=== PATIENT | male | born 1955 | race Caucasian/White ===

== ENCOUNTER 2017-01-24 13:26 | Emergency (ER) | payer MEDICAID, MEDICARE ==
[~2017-01-24] VITALS: Ht 175.3 cm; Wt 90.7 kg
[~2017-01-24 13:26] MED LIST: ACHD5005 PO; ALBU17AE23; ALBU17AE23 IH; ALBU8.5H2 IH; ALBU8.5H4 IH; AMLO10TA82; AMLO10TA82 PO; ATOR20TA66 PO; AZIT-21 PO; BUTA-167; BUTA1TAB55; CETI10CA PO; DOXY100C2 PO; DOXY50CA2 PO; ERYT30GE4 TP; FURO20TA4 PO; HCA25SU PR; HYDR-34 PO; HYDR-3720 PO; HYDR1CAP2 PO; LORA10TA7 PO; MELO-170 PO; MELO15TA39 PO; NAPR-243; NAPR-243 PO; NAPROXEN; OMEP-10 PO; OMEP20CA6; PRCD5U PO; PRD50T PO; RT-ALBUINH IH; SERT100T PO; SIMV20TA3 PO; SIMV40TA2; SIMV40TA2 PO; SIMV40TA4; SRTR100T; TETR250C3; TRAZ50TA67; TRAZ50TA67 PO; TRZ50T; ZOLP10TA5 PO; [UNRECOGNIZED DRUG - CODE] PO; [UNRECOGNIZED DRUG - OTHER]
[2017-01-24] MEDS ORDERED: TRAM-42 PO (14:27)
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
[2017-01-24 14:40] VITALS: BP 152/80
--- NOTE | 2017-01-24 15:16 | Diagnostic Imaging Report ---
INDICATION: Shoulder popping for months. Three views. FINDINGS: Humeral head is in normal articulation with the glenoid fossa. Articulating surfaces are smooth. Joint space well preserved. The AC joint is in good alignment with moderate degenerative change. There is some osteophyte formation along the undersurface. Y view the scapula shows no fractures. No soft tissue calcifications are demonstrated. IMPRESSION: Degenerative osteoarthritic changes. Dictated by: Dictated on workstation # [id number]
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
== END 2017-01-24 14:40 | disposition home or self-care (01) ==
LOC: EDUNIT# 13:26 → ER 13:30
DX: S46.001A Unspecified injury of muscle(s) and tendon(s) of the rotator cuff of right shoulder, initial encounter (principal); M19.011 Primary osteoarthritis, right shoulder; I10 Essential (primary) hypertension; Z79.899 Other long term (current) drug therapy; X58.XXXA Exposure to other specified factors, initial encounter; Y99.8 Other external cause status
CPT/HCPCS: 73030; 99283

== ENCOUNTER → 2017-02-13 | Outpatient (CLI) | payer MEDICARE ==
[~2017-02-13] MED LIST changes: +TRAM-42 PO
--- NOTE | 2017-02-13 17:48 | Diagnostic Imaging Report ---
PROCEDURE: MRI right joint upper extremity without contrast. TECHNIQUE: Multiplanar, multisequence non contrast-enhanced MRI of the right upper extremity was accomplished. INDICATION: No known injury, right shoulder pain for one month. FINDINGS: There are degenerative changes at the AC joint with hypertrophic spurring, but no significant impingement at the level of the supraspinatus tendon is seen. There is tendinosis of the supraspinatus tendon, but no tear is seen. No labral tear is evident. There is no muscle mass or edema. IMPRESSION: There are degenerative changes at the AC joint. There is tendinosis of the supraspinatus tendon. No tear is seen. Dictated by: Dictated on workstation # [id number]
== END ==
LOC: RAD 16:35
PROVIDERS: ATTEND Nurse Practitioner
DX: M75.121 Complete rotator cuff tear or rupture of right shoulder, not specified as traumatic (principal)
CPT/HCPCS: 73221

== ENCOUNTER 2017-03-28 14:30 | Outpatient (RCR) | payer MEDICARE | END 2017-03-28 14:56 | disposition home or self-care (01) | PROVIDERS: ATTEND Nurse Practitioner | DX: S43.431A Superior glenoid labrum lesion of right shoulder, initial encounter (principal); X58.XXXA Exposure to other specified factors, initial encounter; Y99.8 Other external cause status ==

== ENCOUNTER 2017-04-13 10:47 | Emergency (ER) | payer MEDICARE ==
[~2017-04-13] VITALS: Ht 180.3 cm; Wt 104.3 kg
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
--- NOTE | 2017-04-13 11:39 | Diagnostic Imaging Report ---
INDICATION: Wrist pain x3 days. No known trauma. TECHNIQUE: Three views of the right wrist. CORRELATION STUDY: None FINDINGS: There is narrowing of the radiocarpal row with mild sclerosis compatible with degenerative changes. Also narrowing and degenerative change about the mid radioscaphoid row. No acute bony abnormality present. Carpometacarpal articulations appearing unremarkable. Cystic changes about the distal scaphoid. IMPRESSION: 1. Negative for acute bony abnormality of the right wrist. Mild to moderate multifocal degenerative changes present. Dictated by: Dictated on workstation # [id number]
[2017-04-13] MEDS ORDERED: NAPR500T PO (11:51)
[2017-04-13 12:01] VITALS: BP 168/91
== END 2017-04-13 12:01 | disposition home or self-care (01) ==
LOC: EDUNIT# 10:47 → ER 10:48
DX: M25.531 Pain in right wrist (principal); I10 Essential (primary) hypertension; M19.90 Unspecified osteoarthritis, unspecified site; X50.0XXA Overexertion from strenuous movement or load, initial encounter; Y93.H2 Activity, gardening and landscaping
CPT/HCPCS: 73110; 99282

== ENCOUNTER 2017-07-30 10:39 | Emergency (ER) | payer MEDICARE, MEDICAID ==
[~2017-07-30] VITALS: Ht 177.8 cm; Wt 108.9 kg
[~2017-07-30 10:39] MED LIST changes: +NAPR500T PO
[2017-07-30 11:03] LABS: BILIRUBIN,URINE NEGATIVE (NEGATIVE); KETONES,URINE NEGATIVE (NEGATIVE); LEUKOCYTE ESTERASE ,URINE 1+ (NEGATIVE); NITRITE,URINE NEGATIVE (NEGATIVE); PH,URINE 7 (5-9); PROTEIN,URINE NEGATIVE (NEGATIVE); UROBILINOGEN,URINE NORMAL (NORMAL)
[2017-07-30 11:11] LABS: SQUAMOUS EPITHELIAL CELL,UR RARE /HPF
[2017-07-30 11:39] LABS: BASOPHILS % (AUTO) 0 % (0-10); EOSINOPHILS % (AUTO) 0 % (0-10); LYMPHOCYTES # (AUTO) 1.2 X 10^3 (1.0-4.0); LYMPHOCYTES % (AUTO) 12 % (12-44); MEAN CORPUSCULAR HEMOGLOBIN 31 PG (25-34); MEAN CORPUSCULAR HGB CONC 34 G/DL (32-36); MEAN CORPUSCULAR VOLUME 91 FL (80-99); MEAN PLATELET VOLUME 9.1 FL (7.4-10.4); MONOCYTES # (AUTO) 1.1 X 10^3 (0.0-1.0); MONOCYTES % (AUTO) 12 % (0-12); NEUTROPHILS # (AUTO) 7.4 X 10^3 (1.8-7.8); NEUTROPHILS % (AUTO) 76 % (42-75); PLATELET COUNT 284 10^3/uL (130-400); RED BLOOD COUNT 4.95 10^6/uL (4.35-5.85); RED CELL DISTRIBUTION WIDTH 11.9 % (10.0-14.5); WHITE BLOOD COUNT 9.7 10^3/uL (4.3-11.0)
--- NOTE | 2017-07-30 11:47 | ED Back Pain ---
General Chief Complaint: Back Problems Stated Complaint: RIGHT SIDE PAIN Nursing Triage Note: RIGHT SIDED FLANK PAIN X2 DAYS. Nursing Sepsis Screen: No Definite Risk Source of Information: Patient Exam Limitations: No Limitations History of Present Illness Time Seen by Provider: 11:05 Initial Comments 61-year-old male patient presents to the emergency department complains of right sided flank/low back pain for 2 days. Reports pain radiates into the right shoulder blade and rt chest. Pain worse with deep breaths, movement, palpation, and coughing. Patient does have a h/o COPD and emphysema. Denies worsened pain with eating. Patient denies radiation into the LE's. Denies fever, chills, n/v/d. Denies h/o heart disease. Location: Other (rt flank) Timing/Duration: 1-2 Days, Getting Worse Pain/Injury Location: Other (rt flank) Radiation: Other (rt back and rt shoulder blade) Method of Injury: Other (denies known injury) Modifying Factors: Worse With Movement, Worse With Other (worse with a deep breath, coughing, and palpation.) Associated Symptoms: muscle spasms, No fever, No weakness, No numbness in legs/ feet, No tingling in legs/feet, No sensory/motor loss, lower back pain, No loss of bladder control, No loss of bowel control Allergies and Home Medications Allergies Coded Allergies: No Known Drug Allergies (Unverified , 08/25/09) Home Medications Albuterol Sulfate 6.7 Gm Hfa.aer.ad, 6.7 GM IH BID, (Reported) inhale 2 puffs two times a day as needed Albuterol Sulfate 6.7 Gm Hfa.aer.ad, 2 PUFF IH Q6H PRN for SHORTNESS OF BREATH, #1 Ref 0 Prescribed by: NARESH VARGAS on 07/30/17 1305 Amlodipine Besylate 10 Mg Tablet, 1 TAB PO DAILY, (Reported) Atorvastatin Calcium 20 Mg Tablet, 10 MG PO HS, (Reported) Cetirizine Hcl 10 Mg Capsule, 10 MG PO, (Reported) Ciprofloxacin HCl 500 Mg Tablet, 500 MG PO BID, #20 Ref 0 Prescribed by: NARESH VARGAS on 07/30/17 1303 Doxycycline Hyclate 50 Mg Capsule, 50 MG PO BID, (Reported) Furosemide 20 Mg Tablet, 40 MG PO DAILY, (Reported) Hydrocodone Bit/Acetaminophen 1 Ea Tab, 1-2 EA PO QID PRN for PAIN, #20 FOR PAIN Prescribed by: DAHIANA CONTE on 10/13/14 1248 Ketoprofen 75 Mg Capsule, 75 MG PO TID, #15 Ref 0 Prescribed by: NARESH VARGAS on 07/30/17 1303 Meloxicam 15 Mg Tablet, 15 MG PO DAILY PRN for PAIN, (Reported) Naproxen 500 Mg Tablet, 500 MG PO BID PRN for PAIN-MODERATE TO SEVERE, #14 Prescribed by: NILA SNELL on 04/13/17 1151 Omeprazole 20 Mg Capsule.dr, 1 TAB PO DAILY, (Reported) Phenazopyridine HCl 200 Mg Tablet, 1 TAB PO Q8H PRN for pain, #14 Ref 0 Prescribed by: NARESH VARGAS on 07/30/17 1303 Prednisone 20 Mg Tab, 40 MG PO DAILY, #10 Ref 0 Prescribed by: NARESH VARGAS on 07/30/17 1303 Simvastatin 20 Mg Tablet, 20 MG PO d, (Reported) Tramadol HCl 50 Mg Tablet, 50 MG PO Q6H PRN for PAIN, #14 Prescribed by: NILA SNELL on 01/24/17 1427 Zolpidem Tartrate 10 Mg Tablet, 10 MG PO HS, (Reported) Zolpidem Tartrate 10 Mg Tablet, 10 MG PO, (Reported) [Haproxen] , (Reported) Constitutional: No chills, No diaphoresis, No dizziness, No fever, No malaise EENTM: no symptoms reported Respiratory: cough (chronic cough due to COPD and emphysema), No dyspnea on exertion, No hemoptysis, phlegm (clear sputum), No short of breath Cardiovascular: see HPI, chest pain (rt sided chest pain), No edema, No palpitations Gastrointestinal: No abdominal pain, constipation (chronic constipation), No diarrhea, No hematemesis, No jaundice, No loss of appetite, No melena, No nausea , No vomiting Genitourinary: No dysuria, No frequency, No hematuria, pain (rt flank pain) Musculoskeletal: see HPI, back pain, No joint pain, No neck pain Skin: no symptoms reported Psychiatric/Neurological: Denies Headache, Denies Numbness, Denies Paresthesia , Denies Tingling, Denies Weakness All Other Systems Reviewed Negative Unless Noted: Yes (Negative excepted noted.) Past Xtrvvpi-Njnhll-Hvmupn Hx Patient Social History Alcohol Use: Occasionally Uses Alcohol Beverage of Choice: Beer Recreational Drug Use: No Smoking Status: Never a Smoker Recent Foreign Travel: No Contact w/Someone Who Travel: No Recent Infectious Disease Expo: No Recent Hopitalizations: No (KNEE SCOPED 2007) Immunizations Up To Date Tetanus Booster (TDap): Less than 5yrs Date of Pneumonia Vaccine: Aug 31, 2007 Date of Influenza Vaccine: Sep 26, 2014 Seasonal Allergies Seasonal Allergies: No Surgeries History of Surgeries: Yes (SEE ABOVE) Surgeries: Orthopedic Respiratory History of Respiratory Disorde: Yes Respiratory Disorders: Chronic Bronchitis, Emphysema Cardiovascular History of Cardiac Disorders: Yes Cardiac Disorders: Hypertension Neurological History of Neurological Disord: No Reproductive System Hx Reproductive Disorders: No Gastrointestinal History of Gastrointestinal Di: No Musculoskeletal History of Musculoskeletal Dis: Yes Musculoskeletal Disorders: Arthritis Endocrine History of Endocrine Disorders: No Cancer History of Cancer: No Psychosocial History of Psychiatric Problem: No Integumentary History of Skin or Integumenta: No Blood Transfusions History of Blood Disorders: No Reviewed Nursing Assessment Reviewed/Agree w Nursing PMH: Yes Family Medical History Significant Family History: No Pertinent Family Hx Physical Exam Vital Signs Vital Sign - Last 12Hours 07/30/17 10:45 Temp 98.0 Pulse 107 Resp 18 B/P (MAP) 175/103 Pulse Ox 98 Capillary Refill : Less Than 3 Seconds General Appearance: No Apparent Distress, WD/WN HEENT: PERRL/EOMI, Pharynx Normal Neck: Normal Inspection, Supple Cardiovascular: No Edema, No Murmur, Normal Peripheral Pulses, Tachycardia Respiratory: No Accessory Muscle Use, No Respiratory Distress, Crackles (( bilateral bases)), Other (right anterior and lateral chest TTP without deformity , swelling, or ecchymosis.) Peripheral Pulses: 2+ Dorsalis Pedis (R), 2+ Left Dors-Pedis (L), 2+ Radial Pulses (R), 2+ Radial Pulses (L) Gastrointestinal: Normal Bowel Sounds, No Organomegaly, No Pulsatile Mass, Soft , Tenderness (mild tenderness rt mid abdomen and RUQ. Rt flank moderate tenderness.) Back: Normal Inspection, No CVA Tenderness, No Decreased Range of Motion, Vertebral Tenderness Extremity: Normal Capillary Refill, No Calf Tenderness, No Pedal Edema Neurologic/Psychiatric: Alert, Oriented x3, No Motor/Sensory Deficits, Normal Mood/Affect Skin: Normal Color, Warm/Dry Laceration Repair : Suture Size: 5-0 Progress/Results/Core Measures Results/Orders Lab Results Laboratory Tests Test 07/30/17 10:55 07/30/17 11:30 Range/Units Urine Color YELLOW Urine Clarity CLEAR Urine pH 7 5-9 Urine Specific [place] 1.010 L 1.016-1.022 Urine Protein NEGATIVE NEGATIVE Urine Glucose (UA) NEGATIVE NEGATIVE Urine Ketones NEGATIVE NEGATIVE Urine Nitrite NEGATIVE NEGATIVE Urine Bilirubin NEGATIVE NEGATIVE Urine Urobilinogen NORMAL NORMAL MG/DL Urine Leukocyte Esterase 1+ H NEGATIVE Urine RBC (Auto) NEGATIVE NEGATIVE Urine RBC NONE /HPF Urine WBC 5-10 H /HPF Urine Squamous Epithelial Cells RARE /HPF Urine Crystals NONE /LPF Urine Bacteria TRACE /HPF Urine Casts NONE /LPF Urine Mucus SMALL H /LPF Urine Culture Indicated YES White Blood Count 9.7 4.3-11.0 10^3/uL Red Blood Count 4.95 4.35-5.85 10^6/uL Hemoglobin 15.4 13.3-17.7 G/DL Hematocrit 45 40-54 % Mean Corpuscular Volume 91 80-99 FL Mean Corpuscular Hemoglobin 31 25-34 PG Mean Corpuscular Hemoglobin Concent 34 32-36 G/DL Red Cell Distribution Width 11.9 10.0-14.5 % Platelet Count 284 130-400 10^3/uL Mean Platelet Volume 9.1 7.4-10.4 FL Neutrophils (%) (Auto) 76 H 42-75 % Lymphocytes (%) (Auto) 12 12-44 % Monocytes (%) (Auto) 12 0-12 % Eosinophils (%) (Auto) 0 0-10 % Basophils (%) (Auto) 0 0-10 % Neutrophils # (Auto) 7.4 1.8-7.8 X 10^3 Lymphocytes # (Auto) 1.2 1.0-4.0 X 10^3 Monocytes # (Auto) 1.1 H 0.0-1.0 X 10^3 Eosinophils # (Auto) 0.0 0.0-0.3 10^3/uL Basophils # (Auto) 0.0 0.0-0.1 10^3/uL D-Dimer 0.46 0.00-0.49 UG/ML Sodium Level 137 135-145 MMOL/L Potassium Level 4.0 3.6-5.0 MMOL/L Chloride Level 100 98-107 MMOL/L Carbon Dioxide Level 27 21-32 MMOL/L Anion Gap 10 5-14 MMOL/L Blood Urea Nitrogen 8 7-18 MG/DL Creatinine 0.91 0.60-1.30 MG/DL Estimat Glomerular Filtration Rate > 60 BUN/Creatinine Ratio 9 Glucose Level 111 H 70-105 MG/DL Calcium Level 9.7 8.5-10.1 MG/DL Total Bilirubin 1.1 H 0.1-1.0 MG/DL Aspartate Amino Transf (AST/SGOT) 15 5-34 U/L Alanine Aminotransferase (ALT/SGPT) 25 0-55 U/L Alkaline Phosphatase 64 40-136 U/L Troponin I < 0.30 <0.30 NG/ML Total Protein 7.9 6.4-8.2 GM/DL Albumin 4.4 3.2-4.5 GM/DL Lipase 9 8-78 U/L TSH [place] Testing 1.24 0.35-4.94 UIU/ML My Orders Orders - NARESH VARGAS Cbc With Automated Diff (07/30/17 11:32) Comprehensive Metabolic Panel (07/30/17 11:32) Fibrin Degradation Products (07/30/17 11:32) Lipase (07/30/17 11:32) Thyroid Analyzer (07/30/17 11:32) Troponin I (07/30/17 11:32) Saline Lock/Iv-Start (07/30/17 11:32) Ekg Tracing (07/30/17 11:32) Chest Pa/Lat (2 View) (07/30/17 11:32) Abdomen, Flat & Upright/Decub (07/30/17 11:32) Ketorolac Injection (Toradol Injection) (07/30/17 12:25) Orphenadrine Injection (Norflex Injectio (07/30/17 12:25) Vital Signs/I&O Vital Sign - Last 12Hours 07/30/17 07/30/17 10:45 13:42 Temp 98.0 Pulse 107 102 Resp 18 18 B/P (MAP) 175/103 Pulse Ox 98 98 Blood Pressure Mean: 127 ECG Initial ECG Impression Date: Jul 30, 2017 Initial ECG Impression Time: 11:33 Initial ECG Rate: 99 Initial ECG Rhythm: Normal Sinus Initial ECG Intervals: Normal Initial ECG Impression: Normal Initial ECG Comparisson: No Previous ECG Available Comment Sinus rhythm. No STEMI or arrhythmia noted. ECG reviewed and discussed with Dr. Tobin. Diagnostic Imaging Diagonstic Imaging: Xray Plain Films/CT/US/NM/MRI: chest Comments There is suboptimal inspiration with mild linear atelectasis in the lung bases, greater on the left. No pneumothorax or consolidation is identified. No other change is seen. IMPRESSION: Linear atelectasis in the lung bases, greater on the left. If indicated, followup study could be performed with improved inspiratory result to document resolution. Dictated on workstation # [id number] Reviewed: Reviewed by Me (radiology report reviewed by me) Diagonstic Imaging: Xray Plain Films/CT/US/NM/MRI: abdomen Comments There is mild gaseous distention of small and large bowel. No transition point is seen. There is no evidence of free intraperitoneal gas or pneumatosis. No pathologic abdominal calcification is identified. IMPRESSION: No acute abnormalities identified. Dictated on workstation # [id number] Reviewed: Reviewed by Me (radiology report reviewed by me) Departure Communication (Admissions) Progress Notes All laboratory and diagnostic findings discussed with the patient. Plan for discharge to home with follow-up as an outpatient with his PCP. [facility] [place] I've advised the patient to call today for an appointment time this week. All return precautions were discussed with the patient as described in the discharge instructions of this report. Patient voices understanding and agrees with the treatment plan. Impression Impression: Primary Impression: Urinary tract infection Qualified Codes: N30.00 - Acute cystitis without hematuria Additional Impressions: Muscle strain History of chronic obstructive pulmonary disease Disposition: HOME, SELF-CARE Condition: Improved Departure-Patient Inst. Decision time for Depature: 12:59 Referrals: NO,LOCAL PHYSICIAN (PCP/Family) Primary Care Physician Patient Instructions: COPD Including Emphysema (DC), Lumbar Muscle Strain (DC) , Urinary Tract Infection, Adult (DC) Add. Discharge Instructions: All discharge instructions reviewed with patient and/or family. Voiced understanding. Medications as instructed. Tylenol Extra Strength over-the- counter as directed for pain. Drink plenty of fluids. Ice packs or heating pads as needed for pain. Avoid heavy lifting, pushing, pulling, twisting for 5- 7 days. Then increase activity as tolerated. Follow-up with your primary care provider this week for recheck and repeat labs, call today for appointment time. Return to the emergency department for worsened pain, fever, shortness of air, vomiting, abdominal swelling, blood in the stools, numbness, weakness, bowel incontinence, bladder incontinence, or any other concerns. Scripts Albuterol Sulfate (Proventil Hfa) 6.7 Gm Hfa.aer.ad 2 PUFF IH Q6H Y for SHORTNESS OF BREATH, #1 EACH 0 Refills Prov: NARESH VARGAS 07/30/17 Ketoprofen (Ketoprofen) 75 Mg Capsule 75 MG PO TID, #15 CAP 0 Refills Prov: NARESH VARGAS 07/30/17 Prednisone (Prednisone) 20 Mg Tab 40 MG PO DAILY, #10 TAB 0 Refills Prov: NARESH VARGAS 07/30/17 Phenazopyridine HCl (Pyridium) 200 Mg Tablet 1 TAB PO Q8H Y for pain, #14 TAB 0 Refills Prov: NARESH VARGAS 07/30/17 Ciprofloxacin HCl (Ciprofloxacin HCl) 500 Mg Tablet 500 MG PO BID, #20 TAB 0 Refills Prov: NARESH VARGAS 07/30/17 Work/School Note: Local Medical Staff Listing NARESH VARGAS Jul 30, 2017 11:47
[2017-07-30 11:57] LABS: ALANINE AMINOTRANSFERASE 25 U/L (0-55); ALBUMIN 4.4 GM/DL (3.2-4.5); ANION GAP 10 MMOL/L (5-14); ASPARTATE AMINO TRANSFERASE 15 U/L (5-34); BILIRUBIN,TOTAL 1.1 MG/DL (0.1-1.0); BLOOD UREA NITROGEN 8 MG/DL (7-18); BUN/CREATININE RATIO 9; CALCIUM 9.7 MG/DL (8.5-10.1); CARBON DIOXIDE 27 MMOL/L (21-32); CHLORIDE 100 MMOL/L (98-107); CREATININE SERUM 0.91 MG/DL (0.60-1.30); GFR ESTIMATED > 60; GLUCOSE 111 MG/DL (70-105); LIPASE 9 U/L (8-78); SODIUM 137 MMOL/L (135-145); TOTAL PROTEIN 7.9 GM/DL (6.4-8.2)
--- NOTE | 2017-07-30 12:07 | Diagnostic Imaging Report ---
INDICATION: Right flank pain for two days. Supine and upright views of the abdomen are obtained. No previous studies available at this time for comparison. There is mild gaseous distention of small and large bowel. No transition point is seen. There is no evidence of free intraperitoneal gas or pneumatosis. No pathologic abdominal calcification is identified. IMPRESSION: No acute abnormalities identified. Dictated by: Dictated on workstation # [id number]
--- NOTE | 2017-07-30 12:07 | Diagnostic Imaging Report ---
INDICATION: Right flank pain. PA and lateral views of the chest are obtained. Comparison is made to study of 09/15/2016. There is suboptimal inspiration with mild linear atelectasis in the lung bases, greater on the left. No pneumothorax or consolidation is identified. No other change is seen. IMPRESSION: Linear atelectasis in the lung bases, greater on the left. If indicated, followup study could be performed with improved inspiratory result to document resolution. Dictated by: Dictated on workstation # [id number]
[2017-07-30 12:17] LABS: TROPONIN I < 0.30 NG/ML (<0.30)
[2017-07-30] MEDS ORDERED: ORPHENADRINE 60 MG/2 ML (NORFLEX) AMP IV STA (12:25)
[2017-07-30] MEDS ORDERED: KETOROLAC 30 MG/ML VIAL IVP STA (12:25)
[2017-07-30] MEDS ORDERED: CIPR500T4 PO (13:03)
[2017-07-30] MEDS ORDERED: PRD20T PO (13:03)
[2017-07-30] MEDS ORDERED: PHEN-640 PO (13:03)
[2017-07-30] MEDS ORDERED: KETO75CA PO (13:03)
[2017-07-30] MEDS ORDERED: RT-ALBUINH IH (13:05)
[2017-07-30 13:42] VITALS: BP 159/98
== END 2017-07-30 13:42 | disposition home or self-care (01) ==
LOC: EDUNIT# 10:39 → ER 10:41
DX: S39.012A Strain of muscle, fascia and tendon of lower back, initial encounter (principal); N39.0 Urinary tract infection, site not specified; J43.9 Emphysema, unspecified; I10 Essential (primary) hypertension; M19.90 Unspecified osteoarthritis, unspecified site; X50.0XXA Overexertion from strenuous movement or load, initial encounter
CPT/HCPCS: 36415; 71020; 74020; 80053; 81000; 83690; 84443; 84484; 85025; 85379; 87088; 93005; 96374; 96375

== ENCOUNTER 2017-10-08 16:25 | Emergency (ER) | payer MEDICAID, MEDICARE ==
[~2017-10-08] VITALS: Ht 177.8 cm; Wt 104.3 kg
[~2017-10-08 16:25] MED LIST changes: +CIPR500T4 PO; +KETO75CA PO; +NAPR-1071 PO; -NAPR500T PO; +PHEN-640 PO; +PRD20T PO
[2017-10-08 18:47] VITALS: BP 174/90
--- NOTE | 2017-10-08 19:20 | ED Cough/URI ---
General Chief Complaint: Cough/Cold/Flu Symptoms Stated Complaint: COUGH;CONGESTION Nursing Triage Note: ARRIVED VIA AMB TO TRIAGE ROOM. STATES HE RECIEVED A FLU SHOT LAST FRI AND HAS BEEN SICK SINCE WITH A COUGH, CONGESTION, AND LOW GRADE FEVER. Source: patient History of Present Illness Time seen by provider: 19:10 Initial Comments PT STATES HE HAS HAD COUGH AND CONGESTION X 1 WEEK COUGH IS PRODUCTIVE WITH GREEN SPUTUM HAS HAD SHORTNESS OF BREATH --HAS BEEN DX WITH COPD, BUT HAS NEVER SMOKED, HAS BEEN PRESCRIBED 2 INHALERS--ONE IS ALBUTEROL, HE DOES NOT KNOW WHAT THE OTHER INHALER IS. STATES LAST NIGHT AND TODAY, HE HAS USED THE INHALERS "ALL DAY AND ALL NIGHT" -- USED ALBUTEROL . 3-4 THIS AM, AND 2 TIMES THIS AFTERNOON. HAS HAD LOW GRADE SUBJECTIVE FEVER PT HAD FLU SHOT LAST FRIDAY AT THE ID IN [place], AND STATES HE HAS BEEN SICK WITH THESE SYMPTOMS EVER SINCE THEN. NO KNOWN SICK CONTACTS GOES TO ID IN [place] FOR ALL MEDICAL CARE Allergies and Home Medications Allergies Coded Allergies: No Known Drug Allergies (Unverified , 08/25/09) Home Medications Albuterol Sulfate 6.7 Gm Hfa.aer.ad, 6.7 GM IH BID, (Reported) inhale 2 puffs two times a day as needed Albuterol Sulfate 6.7 Gm Hfa.aer.ad, 2 PUFF IH Q6H PRN for SHORTNESS OF BREATH, #1 Ref 0 Prescribed by: NARESH VAGRAS on 07/30/17 1305 Amlodipine Besylate 10 Mg Tablet, 1 TAB PO DAILY, (Reported) Atorvastatin Calcium 20 Mg Tablet, 10 MG PO HS, (Reported) Benzonatate 100 Mg Capsule, 1-2 TAB PO TID, #30 Prescribed by: NANI COLLAZO on 10/08/172110 Cetirizine Hcl 10 Mg Capsule, 10 MG PO, (Reported) Ciprofloxacin HCl 500 Mg Tablet, 500 MG PO BID, #20 Ref 0 Prescribed by: NARESH VARGAS on 07/30/17 130 Doxycycline Hyclate 50 Mg Capsule, 50 MG PO BID, (Reported) Doxycycline Monohydrate 100 Mg Capsule, 100 MG PO BID, #20 Prescribed by: NANI COLLAZO on 10/08/172110 Furosemide 20 Mg Tablet, 40 MG PO DAILY, (Reported) Guaifenesin/Dextromethorphan 1 Each Tbmp.12hr, 1 EACH PO BID for 10 Days, #20 Prescribed by: NANI COLLAZO on 10/08/17 2111 Hydrocodone Bit/Acetaminophen 1 Ea Tab, 1-2 EA PO QID PRN for PAIN, #20 FOR PAIN Prescribed by: DAHIANA CONTE on 10/13/14 1248 Ketoprofen 75 Mg Capsule, 75 MG PO TID, #15 Ref 0 Prescribed by: NARESH VARGAS on 07/30/17 1303 Meloxicam 15 Mg Tablet, 15 MG PO DAILY PRN for PAIN, (Reported) Methylprednisolone 4 Mg Tab.ds.pk, 4 MG PO UD, #1 Prescribed by: NANI COLLAZO on 10/08/171 Naproxen 500 Mg Tablet, 500 MG PO BID PRN for PAIN-MODERATE TO SEVERE, #14 Prescribed by: NILA SNELL on 04/13/17 1151 Omeprazole 20 Mg Capsule.dr, 1 TAB PO DAILY, (Reported) Phenazopyridine HCl 200 Mg Tablet, 1 TAB PO Q8H PRN for pain, #14 Ref 0 Prescribed by: NARESH VARGAS on 07/30/17 1303 Prednisone 20 Mg Tab, 40 MG PO DAILY, #10 Ref 0 Prescribed by: NARESH VARGAS on 07/30/17 1303 Simvastatin 20 Mg Tablet, 20 MG PO d, (Reported) Tramadol HCl 50 Mg Tablet, 50 MG PO Q6H PRN for PAIN, #14 Prescribed by: NILA SNELL on 01/24/17 1427 Zolpidem Tartrate 10 Mg Tablet, 10 MG PO HS, (Reported) Zolpidem Tartrate 10 Mg Tablet, 10 MG PO, (Reported) [Haproxen] , (Reported) Constitutional: see HPI, fever EENTM: see HPI, nose congestion Respiratory: see HPI, cough, phlegm, short of breath, wheezing Cardiovascular: no symptoms reported, No edema, No palpitations Gastrointestinal: no symptoms reported Genitourinary: no symptoms reported Musculoskeletal: no symptoms reported Skin: no symptoms reported Psychiatric/Neurological: No Symptoms Reported Hematologic/Lymphatic: No Symptoms Reported Immunological/Allergic: no symptoms reported Past Shqiokb-Logksi-Ototap Hx Patient Social History Alcohol Use: Past History Alcohol Beverage of Choice: Beer Recreational Drug Use: No Smoking Status: Never a Smoker 2nd Hand Smoke Exposure: No Recent Foreign Travel: No Contact w/Someone Who Travel: No Recent Infectious Disease Expo: No Recent Hopitalizations: No Physical Abuse: No Sexual Abuse: No Immunizations Up To Date Tetanus Booster (TDap): Less than 5yrs Date of Pneumonia Vaccine: Aug 31, 2007 Date of Influenza Vaccine: Oct 01, 2017 Seasonal Allergies Seasonal Allergies: No Surgeries History of Surgeries: Yes (KNEE ARTHROSCOPY 2007) Surgeries: Orthopedic Respiratory History of Respiratory Disorde: Yes Respiratory Disorders: Chronic Bronchitis, COPD, Emphysema Cardiovascular History of Cardiac Disorders: Yes Cardiac Disorders: Hypertension Neurological History of Neurological Disord: No Reproductive System Hx Reproductive Disorders: No Genitourinary History of Genitourinary Disor: No Gastrointestinal History of Gastrointestinal Di: No Musculoskeletal History of Musculoskeletal Dis: Yes Musculoskeletal Disorders: Arthritis Endocrine History of Endocrine Disorders: No (OBESITY) HEENT History of HEENT Disorders: No Cancer History of Cancer: No Psychosocial History of Psychiatric Problem: No Suicide Risk Score: 0 Integumentary History of Skin or Integumenta: No Blood Transfusions History of Blood Disorders: No Physical Exam Vital Signs Vital Sign - Last 12Hours 10/08/17 17:00 Temp 98.3 Pulse 83 Resp 18 B/P (MAP) 180/83 (115) Pulse Ox 92 O2 Delivery Room Air Capillary Refill : Less Than 3 Seconds General Appearance: no apparent distress, obese HEENT: PERRL/EOMI, TMs normal, pharynx normal, other (MILD NASAL MUCOSAL EDEMA AND CLEAR POST NASAL DRAINAGE) Neck: non-tender, full range of motion, supple, normal inspection Respiratory: normal breath sounds, no respiratory distress, no accessory muscle use Cardiovascular: normal peripheral pulses, regular rate, rhythm, no edema, no murmur Gastrointestinal: normal bowel sounds, non tender, soft Extremities: normal inspection, no pedal edema, no calf tenderness, normal capillary refill Neurologic/Psychiatric: filler shredder machine II-XII nml as tested, no motor/sensory deficits, alert, normal mood/affect, oriented x 3 Skin: normal color, warm/dry Laceration Repair : Suture Size: 5-0 Progress/Results/Core Measures Suspected Sepsis Recent Fever Within 48 Hours: Yes Infection Criteria Present: Suspected New Infection New/Unexplained Altered Menta: No Sepsis Screen: No Definite Risk Sepsis Diagnosis: SIRS Temperature:99.0 Pulse: 82 Respiratory Rate: 20 Blood Pressure 174 /90 Mean: 118 Results/Orders Micro Results Microbiology 10/08/17 Influenza Types A,B Antigen (JOSE) - Final, Complete My Orders Orders - NANI COLLAZO DO Influenza A And B Antigens (10/08/17 19:09) Chest Pa/Lat (2 View) (10/08/17 19:15) Sputum Culture (10/08/17 21:08) Methylprednisolone Sod Succ (Solu-Medrol (10/08/17 21:08) Ceftriaxone Injection (Rocephin Injectio (10/08/17 21:15) Lidocaine 1% Injection (Xylocaine 1% Inj (10/08/17 21:15) Benzonatate Capsule (Tessalon Perles) (10/08/17 21:15) Rx-Doxycycline Tablet (Rx-Vibramycin Tab (10/08/17 21:11) Lidocaine 1% (Xylocaine 1%) (10/08/17 21:19) Medications Given in ED Current Medications Medications Dose Ordered Sig/Aide Route Start Time Stop Time Status Last Admin Dose Admin Ceftriaxone Sodium 1,000 mg ONCE ONCE IM 10/08/17 21:15 10/08/17 21:34 DC 10/08/17 21:31 1,000 MG Lidocaine HCl 50 ml STK-MED ONCE .ROUTE 10/08/17 21:19 10/08/17 21:21 DC 10/08/17 21:32 50 ML Vital Signs/I&O Vital Sign - Last 12Hours 10/08/17 10/08/17 10/08/17 17:00 18:47 22:03 Temp 98.3 99.0 Pulse 83 82 89 Resp 18 20 20 B/P (MAP) 180/83 (115) 174/90 (118) Pulse Ox 92 94 92 O2 Delivery Room Air Room Air Room Air Capillary Refill : Less Than 3 Seconds Blood Pressure Mean: 118 Diagnostic Imaging Comments CXR--NO ACUTE PROCESS, PER RADIOLOGIST REPORT @ 2018 Reviewed: Reviewed by Me Departure Impression Impression: Primary Impression: Bronchitis Disposition: 01 HOME, SELF-CARE Condition: Stable Departure-Patient Inst. Referrals: NO,LOCAL PHYSICIAN (PCP/Family) Primary Care Physician Patient Instructions: Acute Bronchitis, Adult (DC) Add. Discharge Instructions: LOTS OF CLEAR LIQUIDS TYLENOL AND MOTRIN NEEDED FOR PAIN OR FEVER [facility] NO [facility], RETURN TO ER IF WORSE All discharge instructions reviewed with patient and/or family. Voiced understanding. Scripts Benzonatate (Tessalon Perle) 100 Mg Capsule 1-2 TAB PO TID for Cough, #30 CAP Prov: NANI COLLAZO DO 10/08/17 Guaifenesin/Dextromethorphan (Mucinex Dm ER 1,200-60 mg Tab) 1 Each Tbmp.12hr 1 EACH PO BID for 10 Days, #20 EA Prov: NANI COLLAZO DO 10/08/17 Methylprednisolone (Medrol) 4 Mg Tab.ds.pk 4 MG PO UD, #1 PKG Prov: NANI COLLAZO DO 10/08/17 Doxycycline Monohydrate (Doxycycline Monohydrate) 100 Mg Capsule 100 MG PO BID, #20 CAP Prov: NANI COLLAZO DO 10/08/17 NANI COLLAZO DO Oct 08, 2017 19:20
--- NOTE | 2017-10-08 20:09 | Diagnostic Imaging Report ---
INDICATION: . Cough, congestion, fever TECHNIQUE: 2 views of the chest. COMPARISON: 07/30/2017 FINDINGS: No focal consolidation is seen. No pleural effusion or pneumothorax is identified. The cardiomediastinal silhouette is normal in size and contour. No acute osseous abnormality is seen. IMPRESSION: No acute pulmonary abnormality is seen. Dictated by: Dictated on workstation # [id number]
[2017-10-08] MEDS ORDERED: methylPREDNISolone 125 MG (Solu-MEDROL) VIAL IM STA (21:08)
[2017-10-08] MEDS ORDERED: METH4TAB PO (21:11)
[2017-10-08] MEDS ORDERED: RX-DOXYCYCLINE 100 MG (VIBRAMYCIN) TAB PPK#2 PO STA (21:11)
[2017-10-08] MEDS ORDERED: DOXY100C42 PO (21:11)
[2017-10-08] MEDS ORDERED: GUAI1TBM19 PO (21:11)
[2017-10-08] MEDS ORDERED: BENZ-13 PO (21:11)
[2017-10-08] MEDS ORDERED: cefTRIAXone 1 GM (ROCEPHIN) VIAL IM ONE (21:15)
[2017-10-08] MEDS ORDERED: BENZONATATE 100 MG (TESSALON) CAPSULE PO SCH (21:15)
[2017-10-08] MEDS ORDERED: LIDOCAINE 1% INJ 20 ML (XYLOCAINE) VIAL INJ ONE (21:15)
[2017-10-08] MEDS ORDERED: LIDOCAINE 1% INJ 50 ML (XYLOCAINE) VIAL ONE (21:19)
[2017-10-08 22:03] VITALS: BP 174/90
== END 2017-10-08 22:03 | disposition home or self-care (01) ==
LOC: EDUNIT# 16:25 → ER 16:26
DX: J40 Bronchitis, not specified as acute or chronic (principal); J43.9 Emphysema, unspecified; I10 Essential (primary) hypertension; M19.90 Unspecified osteoarthritis, unspecified site; E66.9 Obesity, unspecified; Z87.09 Personal history of other diseases of the respiratory system; Z68.33 Body mass index [BMI] 33.0-33.9, adult
CPT/HCPCS: 71020; 87070; 87205; 87804; 99284

== ENCOUNTER 2017-11-13 09:20 | Emergency (ER) | payer MEDICARE ==
[~2017-11-13] VITALS: Ht 177.8 cm; Wt 95.3 kg
[~2017-11-13 09:20] MED LIST changes: +BENZ-13 PO; +DOXY100C42 PO; +GUAI1TBM19 PO; +METH4TAB PO
--- OUTSIDE RECORDS SUMMARY | 2017-11-13 09:27 | XMS REPORT | Continuity of Care Document ---
Author Author [facility] Organization [facility] Address Unknown Phone Unavailable Allergies Active Description Code Type Severity Reaction Onset Reported/Identified Relationship to Patient Clinical Status Yes No Known Drug Allergies [id number] Drug Allergy Mild N/A 08/25/2009 Medications There is no data. Problems Date Dx Coded Attending Type Code Diagnosis Diagnosed By 09/25/1455 ANASTASIA SOLO Ot S43.431A SUPERIOR GLENOID LABRUM LESION OF RIGHT 09/25/1455 ANASTASIA SOLO Ot X58.XXXA EXPOSURE TO OTHER SPECIFIED FACTORS, INI 09/25/1455 ANASTASIA SOLO Ot Y99.8 OTHER EXTERNAL CAUSE STATUS 05/08/2010 Ot 466.0 05/08/2010 Ot 786.2 11/11/2010 [...] Ot 372.30 CONJUNCTIVITIS NOS 05/12/2012 Ot 379.93 REDNESS/ DISCHARGE OF EYE 09/09/2012 Ot 455.4 EXT THROMBOS [...] OTH OVEREXERTION STRENUOUS REPETITIV 04/11/2016 NILA SNELL SMALL BUSINESS DIRECTOR Ot M23.92 UNSPECIFIED INTERNAL DERANGEMENT OF LEFT [...] 09/16/2016 KJ HENDRIX MD Ot Z79.899 OTHER DEAN OF WOMEN (CURRENT) DRUG THERAPY 09/17/2016 KJ HENDRIX MD [...] 09/17/2016 KJ HENDRIX MD Ot Z79.899 OTHER DEAN OF WOMEN (CURRENT) DRUG THERAPY 10/05/2016 NILA SNELL APRN [...] Y99.8 OTHER EXTERNAL CAUSE STATUS 10/07/2016 NILA SNELL APRN Ot S61.211A LACERATION W/O [...] Ot Y99.8 OTHER EXTERNAL CAUSE STATUS 10/15/2016 KJ HENDRIX MD Ot S61.211D LACERATION W/O FB OF L IDX FNGR W/O VARGAS 10/16/2016 SIMEON GUADARRAMA, KJ Santo Ot S61.211D LACERATION [...] EXPOSURE TO OTHER SPECIFIED FACTORS, INI 01/24/2017 NILA SNELL APRN Ot Y99.8 OTHER EXTERNAL CAUSE STATUS 01/24/2017 NILA SNELL APRN Ot Z79.899 OTHER CUSTODIAL (CURRENT) DRUG THERAPY 01/27/2017 NILA SNELL APRN [...] 01/27/2017 NILA SNELL APRN Ot Z79.899 OTHER DEAN OF WOMEN (CURRENT) DRUG THERAPY 02/18/2017 ANASTASIA SOLO Ot M75.121 COMPLETE ROTATR-CUFF TEAR/RUPTR OF R ALFREDITO 03/17/2017 ANASTASIA SOLOP Ot M75.121 COMPLETE ROTATR-CUFF TEAR/RUPTR OF R ALFREDITO 03/21/2017 ANASTASIA SOLO Ot S43.431A SUPERIOR GLENOID LABRUM LESION OF RIGHT 03/21/2017 ANASTASIA SOLO Ot X58.XXXA EXPOSURE TO OTHER SPECIFIED FACTORS, INI 03/21/2017 ANASTASIA SOLO Ot Y99.8 OTHER EXTERNAL CAUSE STATUS 03/28/2017 ANASTASIA SOLOP Ot S43.431A SUPERIOR GLENOID LABRUM LESION OF RIGHT 03/28/2017 ANASTASIA SOLO Ot X58.XXXA EXPOSURE TO OTHER SPECIFIED FACTORS, INI 03/28/2017 ANASTASIA SOLO Ot Y99.8 OTHER EXTERNAL CAUSE STATUS 04/13/2017 NILA SNELL APRN Ot I10 ESSENTIAL (PRIMARY) HYPERTENSION 04/13/2017 NILA SNELL SMALL BUSINESS DIRECTOR Ot M19.90 UNSPECIFIED OSTEOARTHRITIS, UNSPECIFIED 04/13/2017 NILA SNELL APRN Ot M25.531 PAIN IN RIGHT WRIST 04/13/2017 NILA SNELL APRN Ot X50.0XXA OVEREXERTION FROM STRENUOUS MOVEMENT OR 04/13/2017 NILA SNELL APRN Ot Y93.H2 ACTIVITY, GARDENING AND LANDSCAPING 06/12/2017 ANASTASIA SOLO Ot M75.121 COMPLETE ROTATR-CUFF TEAR/RUPTR OF R [place] 07/18/2017 ANASTASIA SOLO WHEAT COMBINE DRIVER Ot M75.121 COMPLETE ROTATR-CUFF TEAR/RUPTR OF R [place]FR[place]O 07/30/2017 ANASTASIA SOLO Ot M75.121 COMPLETE ROTATR-CUFF TEAR/RUPTR OF R ALFREDITO 07/30/2017 NARESH DIA Ot I10 ESSENTIAL (PRIMARY) HYPERTENSION 07/30/2017 NARESH DIA Ot J43.9 EMPHYSEMA, UNSPECIFIED 07/30/2017 NARESH DIA Ot M19.90 UNSPECIFIED OSTEOARTHRITIS, UNSPECIFIED 07/30/2017 NARESH DIA Ot M54.5 LOW BACK PAIN 07/30/2017 NARESH DIA Ot N39.0 URINARY TRACT INFECTION, SITE NOT SPECIF 07/30/2017 NARESH DIA Ot S39.012A STRAIN OF MUSCLE, FASCIA AND TENDON OF L 07/30/2017 NARESH DIA Ot X50.0XXA OVEREXERTION FROM STRENUOUS MOVEMENT OR 10/08/2017 VALE DO NANI K Ot E66.9 OBESITY, UNSPECIFIED 10/08/2017 VALE DO, NANI K Ot I10 ESSENTIAL (PRIMARY) HYPERTENSION 10/08/2017 NANI COLLAZO DO Ot J40 BRONCHITIS, NOT SPECIFIED ACUTE OR CH 10/08/2017 NANI COLLAZO DO Ot J43.9 EMPHYSEMA, UNSPECIFIED 10/08/2017 NANI COLLAZO DO Ot M19.90 UNSPECIFIED OSTEOARTHRITIS, UNSPECIFIED 10/08/2017 NANI COLLAZO DO Ot R05 COUGH 10/08/2017 NANI COLLAZO DO Ot Z68.33 BODY MASS INDEX (BMI) 33.0-33.9, ADULT 10/08/2017 NANI COLLAZO DO Ot Z87.09 PERSONAL HISTORY OF OTHER DISEASES OF TH Procedures There is no data. Results Test Result Range Complete blood count (CBC) with automated white blood cell (WBC) differential - 09/15/16 22:24 Blood leukocytes automated count (number/volume) 7.3 10*3/uL 4.3-11.0 Blood erythrocytes automated count (number/volume) 4.79 10*6/uL 4.35-5.85 Venous blood hemoglobin measurement (mass/volume) 15.3 [...] Automated blood platelet mean volume measurement 9.0 [foz_us] 7.4-10.4 Automated blood neutrophils/100 leukocytes 45 % [...] Serum or plasma sodium measurement (moles/volume) 147 mmol/L 135-145 Serum or plasma potassium measurement (moles/volume) 4.4 mmol/L 3.6-5.0 Serum or plasma chloride measurement (moles/volume) 114 mmol/L 98-107 Carbon dioxide 20 mmol/L 21-32 Serum or plasma anion gap determination (moles/volume) 13 mmol/L 5-14 Serum or plasma urea nitrogen measurement (mass/volume) 13 mg/dL 7-18 Serum or plasma creatinine measurement (mass/volume) 0.97 mg/dL 0.60-1.30 Serum or plasma urea nitrogen/creatinine mass [...] or plasma troponin i.cardiac measurement (mass/volume) < ng/ mL <0.30 Serum or plasma lithium measurement (moles/volume) - 09/15/16 22:24 BNP level 16.7 pg/mL <100.0 Complete urinalysis with reflex to culture - 07/30/17 10:55 Urine color determination YELLOW NRG Urine clarity determination CLEAR NRG Urine pH measurement by test strip 7 5-9 Specific gravity of urine by test strip 1.010 1.016- 1.022 Urine protein assay by test strip, semi-quantitative NEGATIVE NEGATIVE Urine glucose detection by automated test strip NEGATIVE NEGATIVE Erythrocytes detection in urine sediment by light microscopy NEGATIVE NEGATIVE Urine ketones detection by automated test strip NEGATIVE NEGATIVE Urine nitrite detection by test strip NEGATIVE NEGATIVE Urine total bilirubin detection by test strip NEGATIVE NEGATIVE Urine urobilinogen measurement by automated test strip (mass/volume) NORMAL NORMAL Urine leukocyte esterase detection by dipstick 1+ NEGATIVE Automated urine sediment erythrocyte count by microscopy (number/high power field) NONE NRG Automated urine sediment leukocyte count by microscopy (number/high power field ) [HPF] NRG Bacteria detection in urine sediment by light microscopy TRACE NRG Squamous epithelial cells detection in urine sediment by light microscopy RARE NRG Crystals detection in urine sediment by light microscopy NONE NRG Casts detection in urine sediment by light microscopy NONE NRG Mucus detection in urine sediment by light microscopy SMALL NRG Complete urinalysis with reflex to culture YES NRG Bacterial urine culture - 07/30/17 10:55 Bacterial urine culture NG NRG Complete blood count (CBC) with automated white blood cell (WBC) differential - 07/30/17 11:30 Blood leukocytes automated count (number/volume) 9.7 10*3/uL 4.3-11.0 Blood erythrocytes automated count (number/volume) 4.95 10*6/uL 4.35-5.85 Venous blood hemoglobin measurement (mass/volume) 15.4 g/dL 13.3-17.7 Blood hematocrit (volume fraction) 45 % 40-54 Automated erythrocyte mean corpuscular volume 91 [foz_us] 80-99 Automated erythrocyte mean corpuscular hemoglobin (mass per erythrocyte) 31 pg 25-34 Automated erythrocyte mean corpuscular hemoglobin concentration measurement ( mass/volume) 34 g/dL 32-36 Automated erythrocyte distribution width ratio 11.9 % 10.0-14.5 Automated blood platelet count (count/volume) 284 10*3/uL 130-400 Automated blood platelet mean volume measurement 9.1 [foz_us] 7.4-10.4 Automated blood neutrophils/100 leukocytes 76 % 42-75 Automated blood lymphocytes/100 leukocytes 12 % 12-44 Blood monocytes/100 leukocytes 12 % 0-12 Automated blood eosinophils/100 leukocytes 0 % 0-10 Automated blood basophils/100 leukocytes 0 % 0-10 Blood neutrophils automated count (number/volume) 7.4 10*3 1.8-7.8 Blood lymphocytes automated count (number/volume) 1.2 10*3 1.0-4.0 Blood monocytes automated count (number/volume) 1.1 10*3 0.0-1.0 Automated eosinophil count 0.0 10*3/uL 0.0-0.3 Automated blood basophil count (count/volume) 0.0 10*3/uL 0.0-0.1 Comprehensive metabolic panel - 07/30/17 11:30 Serum or plasma sodium measurement (moles/volume) 137 mmol/L 135-145 Serum or plasma potassium measurement (moles/volume) 4.0 mmol/L 3.6-5.0 Serum or plasma chloride measurement (moles/volume) 100 mmol/L 98-107 Carbon dioxide 27 mmol/L 21-32 Serum or plasma anion gap determination (moles/volume) 10 mmol/L 5-14 Serum or plasma urea nitrogen measurement (mass/volume) 8 mg/dL 7-18 Serum or plasma creatinine measurement (mass/volume) 0.91 mg/dL 0.60-1.30 Serum or plasma urea nitrogen/creatinine mass ratio 9 NRG Serum or plasma creatinine measurement with calculation of estimated glomerular filtration rate > NRG Serum or plasma glucose measurement (mass/volume) 111 mg/dL 70-105 Serum or plasma calcium measurement (mass/volume) 9.7 mg/dL 8.5-10.1 Serum or plasma total bilirubin measurement (mass/volume) 1.1 mg/dL 0.1-1.0 Serum or plasma alkaline phosphatase measurement (enzymatic activity/volume) 64 U/L 40-136 Serum or plasma aspartate aminotransferase measurement (enzymatic activity/ volume) 15 U/L 5-34 Serum or plasma alanine aminotransferase measurement (enzymatic activity/volume ) 25 U/L 0-55 Serum or plasma protein measurement (mass/volume) 7.9 g/dL 6.4-8.2 Serum or plasma albumin measurement (mass/volume) 4.4 g/dL 3.2-4.5 Serum or plasma troponin i.cardiac measurement (mass/volume) - 07/30/17 11:30 Serum or plasma troponin i.cardiac measurement (mass/volume) < ng/ mL <0.30 Fibrin D-dimer FEU measurement in platelet poor plasma (mass/volume) - 11:30 Fibrin D-dimer FEU measurement in platelet poor plasma (mass/volume) 0.46 ug/mL 0.00-0.49 Lipase - 07/30/17 11:30 Lipase 9 U/L 8-78 Serum or plasma thyrotropin measurement by detection limit <=0.05 miu/l (units/ volume) - 07/30/17 11:30 Serum or plasma thyrotropin measurement by detection limit <=0.05 miu/l (units/ volume) 1.24 u[iU]/mL 0.35-4.94 Influenza virus A and B antigen detection - 10/08/17 20:20 FLU RESULT NEGATIVE FOR INFLUENZA A AND B ANTIGENS BY IA NRG Sputum Gram stain - 10/08/17 21:05 GRAM STAIN SPUTUM AND MIXED BACTERIAL FELI NRG Bacterial sputum culture - 10/08/17 21:05 Bacterial sputum culture NORMAL NRG Encounters ACCT No. Visit Date/Time Discharge Status Pt. Type Provider Facility Loc./Unit Complaint [id number] 10/08/2017 16:26:00 10/08/2017 22:03:00 DIS Emergency NANI COLLAZO DO [facility] ER COUGH;CONGESTION [id number] 07/30/2017 10:41:00 07/30/2017 13:42:00 DIS Emergency NARESH DIA [facility] ER RIGHT SIDE PAIN [id number] 04/13/2017 10:48:00 04/13/2017 12:01:00 DIS Emergency NILA SNELL APRN [facility] ER R WRIST PAIN [id number] 03/28/2017 14:30:00 03/28/2017 14:56:00 DIS Outpatient ANASTASIA SOLO [facility] REHAB SUPERIOR GLENOID LABRUM LESION OF R SHOULDER [id number] 02/13/2017 16:35:00 02/13/2017 23:59:59 CLS Outpatient ANASTASIA SOLO [facility] RAD M75.121 [id number] 01/24/2017 13:30:00 01/24/2017 14:40:00 DIS Emergency NILA SNELL SMALL BUSINESS DIRECTOR [facility] ER R SHOULDER PAIN [id number] 10/15/2016 17:34:00 10/15/2016 17:51:00 DIS Emergency SIMEON GUADARRAMA, KJ Santo [facility] ER SUTURE REMOVAL [id number] 10/05/2016 15:41:00 10/05/2016 16:08:00 DIS Emergency NILA SNELL SMALL BUSINESS DIRECTOR [facility] ER L FINGER LAC [id number] 09/15/2016 22:22:00 09/16/2016 00:10:00 DIS Emergency KJ HENDRIX MD [facility] ER SOA [id number] 04/11/2016 10:39:00 04/11/2016 12:14:00 DIS Emergency NILA SNELL SMALL BUSINESS DIRECTOR [facility] ER LEFT KNEE INJ [id number] 10/13/2014 09:41:00 10/13/2014 13:08:00 DIS Emergency DAHIANA CONTE MD [facility] ER RIGHT WRIST BRUISED [id number] 10/13/2014 13:29:00 Document Registration [id number] 10/13/2014 13:29:00 Document Registration [id number] 09/09/2012 09:57:00 Document Registration [id number] 05/12/2012 09:21:00 Document Registration [id number] 01/26/2012 12:39:00 Document Registration [id number] 09/07/2011 12:55:00 Document Registration [id number] 12/04/2010 15:55:00 Document Registration [id number] 11/27/2010 15:58:00 Document Registration [id number] 11/11/2010 14:56:00 Document Registration [id number] 05/08/2010 09:22:00 Document Registration
--- NOTE | 2017-11-13 10:44 | ED Back Pain ---
General Chief Complaint: Back Problems Stated Complaint: L LOWER BACK PAIN Nursing Triage Note: c/o left lower back pain x 3 days. Nursing Sepsis Screen: No Definite Risk Source of Information: Patient Exam Limitations: No Limitations History of Present Illness Date Seen by Provider: Nov 13, 2017 Time Seen by Provider: 10:43 Initial Comments To ER with left low back pain 3 days after getting out of the shower. He does not know whether he pulled a muscle or if this represents a kidney issue. No dysuria or obvious hematuria. No fevers chills or history of this. Pain does not radiate. Location: Lumbar Spine, Paraspinous Muscles Timing/Duration: 2-3 Days Severity: Moderate Associated Symptoms: No numbness in legs/feet, No tingling in legs/feet, lower back pain Allergies and Home Medications Allergies Coded Allergies: No Known Drug Allergies (Unverified , 08/25/09) Home Medications Albuterol Sulfate 6.7 Gm Hfa.aer.ad, 6.7 GM IH BID, (Reported) inhale 2 puffs two times a day as needed Albuterol Sulfate 6.7 Gm Hfa.aer.ad, 2 PUFF IH Q6H PRN for SHORTNESS OF BREATH, #1 Ref 0 Prescribed by: NARESH VARGAS on 07/30/17 1305 Amlodipine Besylate 10 Mg Tablet, 1 TAB PO DAILY, (Reported) Atorvastatin Calcium 20 Mg Tablet, 10 MG PO HS, (Reported) Benzonatate 100 Mg Capsule, 1-2 TAB PO TID, #30 Prescribed by: NANI COLLAZO on 10/08/171 Cetirizine Hcl 10 Mg Capsule, 10 MG PO, (Reported) Ciprofloxacin HCl 500 Mg Tablet, 500 MG PO BID, #20 Ref 0 Prescribed by: NARESH VARGAS on 07/30/17 1303 Cyclobenzaprine HCl 5 Mg Tablet, 5 MG PO TID PRN for PAIN-MODERATE, #15 Prescribed by: NILA SNELL on 11/13/17 1112 Doxycycline Hyclate 50 Mg Capsule, 50 MG PO BID, (Reported) Doxycycline Monohydrate 100 Mg Capsule, 100 MG PO BID, #20 Prescribed by: NANI COLLAZO on 10/08/172110 Furosemide 20 Mg Tablet, 40 MG PO DAILY, (Reported) Guaifenesin/Dextromethorphan 1 Each Tbmp.12hr, 1 EACH PO BID for 10 Days, #20 Prescribed by: NANI COLLAZO on 10/08/17 2111 Hydrocodone Bit/Acetaminophen 1 Ea Tab, 1-2 EA PO QID PRN for PAIN, #20 FOR PAIN Prescribed by: DAHIANA CONTE on 10/13/14 1248 Ketoprofen 75 Mg Capsule, 75 MG PO TID, #15 Ref 0 Prescribed by: NARESH VARGAS on 07/30/17 1303 Meloxicam 15 Mg Tablet, 15 MG PO DAILY PRN for PAIN, (Reported) Methylprednisolone 4 Mg Tab.ds.pk, 4 MG PO UD, #1 Prescribed by: NANI COLLAZO on 10/08/17 2111 Naproxen 500 Mg Tablet, 500 MG PO BID PRN for PAIN-MODERATE TO SEVERE, #14 Prescribed by: NILA SNELL on 04/13/17 1151 Omeprazole 20 Mg Capsule.dr, 1 TAB PO DAILY, (Reported) Phenazopyridine HCl 200 Mg Tablet, 1 TAB PO Q8H PRN for pain, #14 Ref 0 Prescribed by: NARESH VARGAS on 07/30/17 1303 Prednisone 20 Mg Tab, 40 MG PO DAILY, #10 Ref 0 Prescribed by: NARESH VARGAS on 07/30/17 1303 Simvastatin 20 Mg Tablet, 20 MG PO d, (Reported) Tramadol HCl 50 Mg Tablet, 50 MG PO Q6H PRN for PAIN, #14 Prescribed by: NILA SNELL on 01/24/17 1427 Zolpidem Tartrate 10 Mg Tablet, 10 MG PO HS, (Reported) Zolpidem Tartrate 10 Mg Tablet, 10 MG PO, (Reported) [Haproxen] , (Reported) Constitutional: see HPI EENTM: see HPI Respiratory: no symptoms reported Cardiovascular: no symptoms reported Genitourinary: no symptoms reported Musculoskeletal: no symptoms reported Skin: no symptoms reported Psychiatric/Neurological: No Symptoms Reported Past Wpgekrg-Cmhtjn-Xplmpb Hx Patient Social History Alcohol Beverage of Choice: Beer 2nd Hand Smoke Exposure: No Recent Foreign Travel: No Contact w/Someone Who Travel: No Recent Infectious Disease Expo: No Recent Hopitalizations: No Immunizations Up To Date Tetanus Booster (TDap): Less than 5yrs Date of Pneumonia Vaccine: Aug 31, 2007 Date of Influenza Vaccine: Oct 01, 2017 Seasonal Allergies Seasonal Allergies: No Surgeries History of Surgeries: Yes (KNEE ARTHROSCOPY 2008) Surgeries: Orthopedic Respiratory History of Respiratory Disorde: Yes Respiratory Disorders: Chronic Bronchitis, COPD, Emphysema Cardiovascular History of Cardiac Disorders: Yes Cardiac Disorders: Hypertension Neurological History of Neurological Disord: No Reproductive System Hx Reproductive Disorders: No Genitourinary History of Genitourinary Disor: No Gastrointestinal History of Gastrointestinal Di: No Musculoskeletal History of Musculoskeletal Dis: Yes Musculoskeletal Disorders: Arthritis Endocrine History of Endocrine Disorders: No (OBESITY) HEENT History of HEENT Disorders: No Cancer History of Cancer: No Psychosocial History of Psychiatric Problem: No Integumentary History of Skin or Integumenta: No Blood Transfusions History of Blood Disorders: No Physical Exam Vital Signs Vital Sign - Last 12Hours 11/13/17 09:55 Temp 99.1 Pulse 80 Resp 16 Pulse Ox 95 O2 Delivery Room Air Capillary Refill : Less Than 3 Seconds General Appearance: No Apparent Distress, WD/WN HEENT: PERRL/EOMI, TMs Normal Neck: Full Range of Motion, Normal Inspection Cardiovascular: Regular Rate, Rhythm, Normal Peripheral Pulses Respiratory: Normal Breath Sounds, No Accessory Muscle Use, No Respiratory Distress Gastrointestinal: Non Tender, Soft Back: Other (left lumbar paraspinous muscle tenderness, no rash or erythema or ecchymosis) Extremity: Normal Capillary Refill, Normal Inspection Neurologic/Psychiatric: Alert, Oriented x3 Skin: Normal Color, Warm/Dry Laceration Repair : Suture Size: 5-0 Progress/Results/Core Measures Results/Orders Lab Results Laboratory Tests Test 11/13/17 10:45 Range/Units Urine Color YELLOW Urine Clarity SLIGHTLY CLOUDY Urine pH 7 5-9 Urine Specific Proctor 1.005 L 1.016-1.022 Urine Protein NEGATIVE NEGATIVE Urine Glucose (UA) NEGATIVE NEGATIVE Urine Ketones NEGATIVE NEGATIVE Urine Nitrite NEGATIVE NEGATIVE Urine Bilirubin NEGATIVE NEGATIVE Urine Urobilinogen NORMAL NORMAL MG/DL Urine Leukocyte Esterase NEGATIVE NEGATIVE Urine RBC (Auto) NEGATIVE NEGATIVE Urine RBC RARE /HPF Urine WBC RARE /HPF Urine Crystals NONE /LPF Urine Bacteria NEGATIVE /HPF Urine Casts NONE /LPF Urine Mucus NEGATIVE /LPF Urine Culture Indicated NO My Orders Orders - NILA SNELL APRN Ct Abd/Pelvis Wo(Kidney Stone) (11/13/17 10:40) Ketorolac Injection (Toradol Injection) (11/13/17 10:45) Orphenadrine Injection (Norflex Injectio (11/13/17 10:45) Vital Signs/I&O Vital Sign - Last 12Hours 11/13/17 09:55 Temp 99.1 Pulse 80 Resp 16 B/P (MAP) Pulse Ox 95 O2 Delivery Room Air Departure Impression Impression: Primary Impression: Back pain Disposition: HOME, SELF-CARE Condition: Stable Departure-Patient Inst. Decision time for Depature: 11:11 Referrals: NO,LOCAL PHYSICIAN (PCP) Primary Care Physician GILLIAN BENNETT MD Patient Instructions: Lumbar Muscle Strain (DC) Add. Discharge Instructions: 1. Take Motrin (ibuprofen) as needed for pain control in addition to the muscle relaxer and warm heat to the back being careful not to burn yourself 2. Follow-up with your doctor next week 3. Return to ER for any fevers, intolerable pain or other concerns. 4. On the CAT scan of the wall of your bladder appeared to be a little thickened which could just be because the bladder was empty, alternatively could be from other causes. Follow-up with Dr. Bennett, urologist. All discharge instructions reviewed with patient and/or family. Voiced understanding. Scripts Cyclobenzaprine HCl (Cyclobenzaprine HCl) 5 Mg Tablet 5 MG PO TID Y for PAIN-MODERATE, #15 TAB Prov: NILA SNELL APRN 11/13/17 NILA SNELL APRN Nov 13, 2017 10:44
[2017-11-13] MEDS ORDERED: ORPHENADRINE 60 MG/2 ML (NORFLEX) AMP IM ONE (10:45)
[2017-11-13] MEDS ORDERED: KETOROLAC 60 MG/2 ML VIAL IM ONE (10:45)
[2017-11-13 10:50] LABS: BILIRUBIN,URINE NEGATIVE (NEGATIVE); CLARITY,URINE SLIGHTLY CLOUDY; COLOR,URINE YELLOW; GLUCOSE, URINE (UA) NEGATIVE (NEGATIVE); KETONES,URINE NEGATIVE (NEGATIVE); LEUKOCYTE ESTERASE ,URINE NEGATIVE (NEGATIVE); NITRITE,URINE NEGATIVE (NEGATIVE); PH,URINE 7 (5-9); PROTEIN,URINE NEGATIVE (NEGATIVE); UROBILINOGEN,URINE NORMAL (NORMAL)
[2017-11-13 11:07] LABS: BACTERIA,URINE NEGATIVE /HPF; RBC,URINE RARE /HPF; WBC,URINE RARE /HPF
[2017-11-13] MEDS ORDERED: CYCL5TAB PO (11:12)
--- NOTE | 2017-11-13 11:13 | Diagnostic Imaging Report ---
PROCEDURE: CT urinary tract, rule out kidney stone. TECHNIQUE: Multiple contiguous axial images were obtained through the abdomen and pelvis without the use of intravenous contrast. INDICATION: Lower left back pain. COMPARISON: No prior studies are available for comparison. FINDINGS: There is linear scarring or subsegmental atelectasis in both lung bases. No discrete liver mass is identified. There are multiple stones within the gallbladder. The pancreas and spleen are unremarkable. No adrenal mass is identified. No renal calculi or hydronephrosis is detected. No ureteral calculi are detected. The bladder does demonstrate some wall thickening anteriorly, nonspecific. Prostate is unremarkable. There is colonic diverticulosis but no evidence of acute diverticulitis. The appendix is unremarkable. There is no ascites. There is a fat-containing left inguinal hernia. IMPRESSION: 1. Cholelithiasis. 2. Uncomplicated diverticulosis. 3. No evidence of urinary tract calculi or obstruction. 4. Nonspecific bladder wall thickening. While this could partially be owing to incomplete distention, underlying cystitis or neoplasm cannot be entirely excluded. No other significant abnormality is seen. Dictated by: Dictated on workstation # [id number]
[2017-11-13 11:30] VITALS: BP 142/90
== END 2017-11-13 11:30 | disposition home or self-care (01) ==
LOC: EDUNIT# 09:20 → ER 09:22
DX: M54.5 Low back pain (principal); I10 Essential (primary) hypertension; J43.9 Emphysema, unspecified; E66.9 Obesity, unspecified; Z68.30 Body mass index [BMI] 30.0-30.9, adult
CPT/HCPCS: 74176; 81000; 96372; 99284

== ENCOUNTER 2019-08-16 09:51 | Emergency (ER) | payer MEDICARE ==
[~2019-08-16] VITALS: Ht 177.8 cm; Wt 108.1 kg
[~2019-08-16 09:51] MED LIST changes: -BENZ-13 PO; +BENZ100C18 PO; +CYCL5TAB PO; -KETO75CA PO; +KETO75CA11 PO
[2019-08-16] MEDS ORDERED: RT-ALBUTEROL/IPRATROPIUM 3 ML (DUONEB) VIAL INH ONE (10:45)
--- NOTE | 2019-08-16 10:53 | ED Cough/URI ---
General Chief Complaint: Cough/Cold/Flu Symptoms Stated Complaint: COUGH Nursing Triage Note: PT AMB TO RM 8 WITH COMPLAINT OF COUGH X 1 MONTH. Sepsis Screen: No Definite Risk Source: patient Exam Limitations: no limitations History of Present Illness Date Seen by Provider: Aug 16, 2019 Time Seen by Provider: 10:51 Initial Comments This 64-year-old white male presents with a persistent cough for the past month following mowing the grass. Patient denies fever or chill. He's had a whitish but otherwise not colored or particularly productive sputum. The patient has had no associated chest pain, shortness breath, peripheral edema, nausea vomiting or diarrhea. Significant past medical history includes restrictive airways disease for which he takes albuterol. Allergies and Home Medications Allergies Coded Allergies: No Known Drug Allergies (Unverified , 08/25/09) Home Medications Albuterol Sulfate 6.7 Gm Hfa.aer.ad, 6.7 GM IH BID, (Reported) inhale 2 puffs two times a day as needed Albuterol Sulfate 6.7 Gm Hfa.aer.ad, 2 PUFF IH Q6H PRN for SHORTNESS OF BREATH Prescribed by: NARESH VARGAS on 07/30/17 1305 Amlodipine Besylate 10 Mg Tablet, 1 TAB PO DAILY, (Reported) Atorvastatin Calcium 20 Mg Tablet, 10 MG PO HS, (Reported) Benzonatate 100 Mg Capsule, 1-2 TAB PO TID Prescribed by: NANI COLLAZO on 10/08/172110 Ciprofloxacin HCl 500 Mg Tablet, 500 MG PO BID Prescribed by: NARESH VARGAS on 07/30/17 1303 Cyclobenzaprine HCl 5 Mg Tablet, 5 MG PO TID PRN for PAIN-MODERATE Prescribed by: NILA SNELL on 11/13/17 111 Doxycycline Hyclate 50 Mg Capsule, 50 MG PO BID, (Reported) Doxycycline Monohydrate 100 Mg Capsule, 100 MG PO BID Prescribed by: NANI COLLAZO on 10/08/172110 Furosemide 20 Mg Tablet, 40 MG PO DAILY, (Reported) Guaifenesin/Dextromethorphan 1 Each Tbmp.12hr, 1 EACH PO BID Prescribed by: NANI COLLAZO on 10/08/172110 Hydrocodone Bit/Acetaminophen 1 Ea Tab, 1-2 EA PO QID PRN for PAIN FOR PAIN Prescribed by: DAHIANA CONTE on 10/13/14 1248 Ketoprofen 75 Mg Capsule, 75 MG PO TID Prescribed by: NARESH VARGAS on 07/30/17 1303 Meloxicam 15 Mg Tablet, 15 MG PO DAILY PRN for PAIN, (Reported) Methylprednisolone 4 Mg Tab.ds.pk, 4 MG PO UD Prescribed by: NANI COLLAZO on 10/08/17 2111 Naproxen 500 Mg Tablet, 500 MG PO BID PRN for PAIN-MODERATE TO SEVERE Prescribed by: NILA SNELL on 04/13/17 1151 Omeprazole 20 Mg Capsule.dr, 1 TAB PO DAILY, (Reported) Phenazopyridine HCl 200 Mg Tablet, 1 TAB PO Q8H PRN for pain Prescribed by: NARESH VARGAS on 07/30/17 1303 Prednisone 20 Mg Tab, 40 MG PO DAILY Prescribed by: NARESH VARGAS on 07/30/17 1303 Simvastatin 20 Mg Tablet, 20 MG PO d, (Reported) Tramadol HCl 50 Mg Tablet, 50 MG PO Q6H PRN for PAIN Prescribed by: NILA SNELL on 01/24/17 1427 Zolpidem Tartrate 10 Mg Tablet, 10 MG PO HS, (Reported) Patient Home Medication List Home Medication List Reviewed: Yes Review of Systems Review of Systems Constitutional: no symptoms reported EENTM: No hearing loss Respiratory: cough; No short of breath Cardiovascular: No chest pain, No palpitations Gastrointestinal: No abdominal pain, No nausea, No vomiting Genitourinary: no symptoms reported Musculoskeletal: no symptoms reported Skin: no symptoms reported Psychiatric/Neurological: No Symptoms Reported Hematologic/Lymphatic: No Symptoms Reported Immunological/Allergic: no symptoms reported Past Xwncepk-Atecnk-Htgbsv Hx Past Med/Social Hx: Reviewed Nursing Past Med/Soc Hx Patient Social History Alcohol Use: Occasionally Uses Number of Drinks Today: AA Alcohol Beverage of Choice: Beer Recreational Drug Use: No (DRINKS BEER EVERY WKEND) Smoking Status: Never a Smoker 2nd Hand Smoke Exposure: No Recent Foreign Travel: No Contact w/Someone Who Travel: No Recent Infectious Disease Expo: No Recent Hopitalizations: No Physical Abuse: No Sexual Abuse: No Mistreated: No Fear: No Immunizations Up To Date Tetanus Booster (TDap): Less than 5yrs Date of Pneumonia Vaccine: Aug 31, 2007 Date of Influenza Vaccine: Oct 01, 2017 Seasonal Allergies Seasonal Allergies: No Past Medical History Surgeries: Yes (KNEE ARTHROSCOPY 2008) Orthopedic Respiratory: Yes Chronic Bronchitis, COPD, Emphysema Cardiac: Yes Hypertension Neurological: No Reproductive Disorders: No Genitourinary: No Gastrointestinal: No Musculoskeletal: Yes Arthritis Endocrine: No (OBESITY) HEENT: No Cancer: No Psychosocial: No Integumentary: No Blood Disorders: No Physical Exam Vital Signs - First Documented 08/16/19 10:00 Temp 37.3 Pulse 89 Resp 19 B/P (MAP) 163/83 (109) Pulse Ox 95 O2 Delivery Room Air Capillary Refill : Less Than 3 Seconds Height: 5'10.00" Weight: 210lbs. oz. 95.224264yx; 34.00 BMI Method:Estimated General Appearance: WD/WN, no apparent distress HEENT: normal ENT inspection Neck: normal inspection Respiratory: decreased breath sounds Cardiovascular: regular rate, rhythm Gastrointestinal: normal bowel sounds Extremities: normal range of motion Neurologic/Psychiatric: no motor/sensory deficits, alert, normal mood/affect Skin: normal color, warm/dry Procedures/Interventions Suture Size: 5-0 Progress/Results/Core Measures Suspected Sepsis Recent Fever Within 48 Hours: No Infection Criteria Present: None New/Unexplained Altered Menta: No Sepsis Screen: No Definite Risk SIRS Temperature: Pulse: 89 Respiratory Rate: 19 Blood Pressure 163 /83 Mean: 109 Results/Orders My Orders Orders - SOFY AKINS MD Cbc With Automated Diff (08/16/19 10:45) Chest 1 View, Ap/Pa Only (08/16/19 10:45) Albuterol/Ipra Inhalation Soln (Duoneb I (08/16/19 10:45) Svn Small Volume Nebulizer (08/16/19 10:45) Medications Given in ED Current Medications Medications Dose Ordered Sig/Aide Route Start Time Stop Time Status Last Admin Dose Admin Albuterol/ Ipratropium 3 ml ONCE ONCE INH 08/16/19 10:45 08/16/19 10:46 DC 08/16/19 11:00 3 ML Vital Signs/I&O 08/16/19 08/16/19 10:00 10:59 Temp 37.3 Pulse 89 Resp 19 B/P (MAP) 163/83 (109) Pulse Ox 95 96 O2 Delivery Room Air Room Air Capillary Refill : Less Than 3 Seconds Blood Pressure Mean: 109 Progress Note : Time: 11:36 Progress Note The patient's chest x-ray was unremarkable. The patient's presentation is most consistent with an exacerbation of his reversible airways disease. I discussed findings with patient and placed him on a five-day course of prednisone. I asked that he follow closely with his doctor in the next 48 hours. I invited him to return to the emergency department if any further problems or questions. Departure Impression Primary Impression: COPD exacerbation Disposition: HOME, SELF-CARE Condition: Unchanged Departure-Patient Inst. Decision time for Depature: 11:37 Referrals: NO,LOCAL PHYSICIAN (PCP) Primary Care Physician Patient Instructions: COPD Including Emphysema (DC) Add. Discharge Instructions: Prednisone as prescribed. Continue with her albuterol inhaler. [facility]. Return if any problems or questions. All discharge instructions reviewed with patient and/or family. Voiced understanding. Scripts Prednisone (Prednisone) 20 Mg Tab 60 MG PO DAILY, #14 TAB 0 Refills Prov: SOFY AKINS MD 08/16/19 SOFY AKINS MD Aug 16, 2019 10:53
--- NOTE | 2019-08-16 11:14 | Diagnostic Imaging Report ---
INDICATION: Cough. TIME OF EXAM: 11:05 AM Correlation is made with prior chest from 10/08/2017. The heart size is normal. The pulmonary vascularity is unremarkable. The lungs are clear. No infiltrate, effusion or pneumothorax is detected. IMPRESSION: No acute cardiopulmonary process is detected. Dictated by: Dictated on workstation # [id number]
[2019-08-16] MEDS ORDERED: PRD20T PO (11:39)
[2019-08-16 11:47] VITALS: BP 163/83
== END 2019-08-16 11:47 | disposition home or self-care (01) ==
LOC: EDUNIT# 09:51 → ER 09:52
DX: J44.1 Chronic obstructive pulmonary disease with (acute) exacerbation (principal); I10 Essential (primary) hypertension; E66.9 Obesity, unspecified; Z68.34 Body mass index [BMI] 34.0-34.9, adult; Z79.52 Long term (current) use of systemic steroids; Z87.09 Personal history of other diseases of the respiratory system
CPT/HCPCS: 71045; 94640

== ENCOUNTER 2020-10-04 13:21 | Emergency (ER) | payer MEDICARE ==
[~2020-10-04] VITALS: Ht 177 cm; Wt 104.0 kg
--- NOTE | 2020-10-04 15:23 | ED Abdominal Pain ---
General Stated Complaint: N/V,CHILLS,COUGH Source of Information: Patient Exam Limitations: No Limitations History of Present Illness Date Seen by Provider: Oct 04, 2020 Time Seen by Provider: 15:23 Initial Comments This is a 65-year-old male presents to ER with complaints of nausea, vomiting, diarrhea. States his symptoms began Friday night when he quit drinking alcohol. Reports being a daily drinker of 12 beers for several years. Additionally reports difficulty urinating and pain in his sides since Friday. Pain is dull ache, rates 7/10, and localized to his sides. Denies fevers, chills, cough, shortness of breath, chest pain, rashes, or dysuria. States he usually takes Ibuprofen 5-6 tablets at a time 2-3 times a day as needed for arthritic pain, and has been doing this for years. However, states the pain is not improved with Ibuprofen. Allergies and Home Medications Allergies Coded Allergies: No Known Drug Allergies (Unverified , 08/25/09) Home Medications Albuterol Sulfate 6.7 Gm Hfa.aer.ad, 6.7 GM IH BID, (Reported) inhale 2 puffs two times a day as needed Albuterol Sulfate 6.7 Gm Hfa.aer.ad, 2 PUFF IH Q6H PRN for SHORTNESS OF BREATH Prescribed by: NARESH VARGAS on 07/30/17 1305 Amlodipine Besylate 10 Mg Tablet, 1 TAB PO DAILY, (Reported) Atorvastatin Calcium 20 Mg Tablet, 10 MG PO HS, (Reported) Benzonatate 100 Mg Capsule, 1-2 TAB PO TID Prescribed by: NANI COLLAZO on 10/08/172110 Ciprofloxacin HCl 500 Mg Tablet, 500 MG PO BID Prescribed by: NARESH VARGAS on 07/30/17 1303 Cyclobenzaprine HCl 5 Mg Tablet, 5 MG PO TID PRN for PAIN-MODERATE Prescribed by: NILA SNELL on 11/13/17 111 Doxycycline Hyclate 50 Mg Capsule, 50 MG PO BID, (Reported) Doxycycline Monohydrate 100 Mg Capsule, 100 MG PO BID Prescribed by: NANI COLLAZO on 10/08/172110 Furosemide 20 Mg Tablet, 40 MG PO DAILY, (Reported) Guaifenesin/Dextromethorphan 1 Each Tbmp.12hr, 1 EACH PO BID Prescribed by: NANI COLLAZO on 10/08/172110 Hydrocodone Bit/Acetaminophen 1 Ea Tab, 1-2 EA PO QID PRN for PAIN FOR PAIN Prescribed by: DAHIANA CONTE on 10/13/14 1248 Ketoprofen 75 Mg Capsule, 75 MG PO TID Prescribed by: NARESH VARGAS on 07/30/17 1303 Meloxicam 15 Mg Tablet, 15 MG PO DAILY PRN for PAIN, (Reported) Methylprednisolone 4 Mg Tab.ds.pk, 4 MG PO UD Prescribed by: NANI COLLAZO on 10/08/172110 Naproxen 500 Mg Tablet, 500 MG PO BID PRN for PAIN-MODERATE TO SEVERE Prescribed by: NILA SNELL on 04/13/17 1151 Omeprazole 20 Mg Capsule.dr, 1 TAB PO DAILY, (Reported) Phenazopyridine HCl 200 Mg Tablet, 1 TAB PO Q8H PRN for pain Prescribed by: NARESH VARGAS on 07/30/17 1303 Prednisone 20 Mg Tab, 40 MG PO DAILY Prescribed by: NARESH VARGAS on 07/30/17 1303 Prednisone 20 Mg Tab, 60 MG PO DAILY Prescribed by: SOFY AKINS MD on 08/16/19 1139 Simvastatin 20 Mg Tablet, 20 MG PO d, (Reported) Tramadol HCl 50 Mg Tablet, 50 MG PO Q6H PRN for PAIN Prescribed by: NILA SNELL on 01/24/17 1427 Zolpidem Tartrate 10 Mg Tablet, 10 MG PO HS, (Reported) Patient Home Medication List Home Medication List Reviewed: Yes Review of Systems Review of Systems Constitutional: No diaphoresis, No dizziness, No fever; weakness EENTM: No Symptoms Reported Respiratory: No Symptoms Reported Cardiovascular: No Symptoms Reported Gastrointestinal: See HPI Genitourinary: See HPI Musculoskeletal: no symptoms reported Skin: no symptoms reported Psychiatric/Neurological: No Symptoms Reported Endocrine: No Symptoms Reported Hematologic/Lymphatic: No Symptoms Reported Past Qdlhcks-Ntrrsa-Vlteft Hx Patient Social History Alcohol Beverage of Choice: Beer 2nd Hand Smoke Exposure: No Recent Hopitalizations: No Immunizations Up To Date Tetanus Booster (TDap): Less than 5yrs Date of Pneumonia Vaccine: Aug 31, 2007 Date of Influenza Vaccine: Oct 01, 2017 Seasonal Allergies Seasonal Allergies: No Past Medical History Surgeries: Yes (KNEE ARTHROSCOPY 2007) Orthopedic Respiratory: Yes Chronic Bronchitis, COPD, Emphysema Cardiac: Yes Hypertension Neurological: No Reproductive Disorders: No Genitourinary: No Gastrointestinal: No Musculoskeletal: Yes Arthritis Endocrine: No (OBESITY) HEENT: No Cancer: No Psychosocial: No Integumentary: No Blood Disorders: No Physical Exam Vital Signs Vital Signs - First Documented 10/04/20 14:30 Temp 36.3 Pulse 92 Resp 18 B/P (MAP) 107/70 (82) Pulse Ox 94 Capillary Refill : Height/Weight/BMI Height: 5'10.00" Weight: 210lbs. oz. 95.754998ca; 34.00 BMI Method:Estimated General Appearance: WD/WN, no apparent distress HEENT: PERRL/EOMI, TMs normal Neck: full range of motion, normal inspection Respiratory: lungs clear, no respiratory distress, no accessory muscle use, decreased breath sounds Cardiovascular: regular rate, rhythm, no edema, no gallop, systolic murmur Gastrointestinal: soft, distended; No rebound, No tenderness; other (neg peritoneal signs ) Extremities: normal range of motion, non-tender, normal inspection Back: no CVA tenderness, no vertebral tenderness Neurologic/Psychiatric: no motor/sensory deficits, alert, normal mood/affect, oriented x 3 Skin: normal color, warm/dry; No cyanosis, No cool, No diaphoresis, No jaundice Focused Exam Lactate Level 10/04/20 17:43: Lactic Acid Level 1.41 Lactic Acid Level Laboratory Tests Test 10/04/20 17:43 Lactic Acid Level 1.41 MMOL/L (0.50-2.00) Procedures/Interventions Suture Size: 5-0 Progress/Results/Core Measures Results/Orders Lab Results Laboratory Tests Test 10/04/20 14:39 10/04/20 16:00 10/04/20 16:10 10/04/20 16:18 Range/Units Coronavirus 2019 (DIMITRIS) Negative Negative Urine Color ORANGE Urine Clarity CLEAR Urine pH 5.0 5-9 Urine Specific [place] >=1.030 1.016-1.022 Urine Protein TRACE H NEGATIVE Urine Glucose (UA) NEGATIVE NEGATIVE Urine Ketones NEGATIVE NEGATIVE Urine Nitrite NEGATIVE NEGATIVE Urine Bilirubin 1+ H NEGATIVE Urine Urobilinogen 1.0 < = 1.0 MG/DL Urine Leukocyte Esterase NEGATIVE NEGATIVE Urine RBC (Auto) 2+ H NEGATIVE Urine RBC 0-2 /HPF Urine WBC RARE /HPF Urine Squamous Epithelial Cells 0-2 /HPF Urine Renal Epithelial Cells RARE /HPF Urine Crystals PRESENT H /LPF Urine Amorphous Sediment MOD BRODY URATES H /LPF Urine Bacteria NEGATIVE /HPF Urine Casts PRESENT /LPF Urine Granular Casts 0-2 H /LPF Urine Mucus NEGATIVE /LPF Urine Culture Indicated NO Urine Opiates Screen NEGATIVE NEGATIVE Urine Oxycodone Screen NEGATIVE NEGATIVE Urine Methadone Screen NEGATIVE NEGATIVE Urine Propoxyphene Screen NEGATIVE NEGATIVE Urine Barbiturates Screen NEGATIVE NEGATIVE Ur Tricyclic Antidepressants Screen NEGATIVE NEGATIVE Urine Phencyclidine Screen NEGATIVE NEGATIVE Urine Amphetamines Screen NEGATIVE NEGATIVE Urine Methamphetamines Screen NEGATIVE NEGATIVE Urine Benzodiazepines Screen NEGATIVE NEGATIVE Urine Cocaine Screen NEGATIVE NEGATIVE Urine Cannabinoids Screen NEGATIVE NEGATIVE Prothrombin Time 15.3 H 12.2-14.7 SEC INR Comment 1.2 0.8-1.4 Activated Partial Thromboplast Time 46 H 24-35 SEC White Blood Count 16.5 H 4.3-11.0 10^3/uL Red Blood Count 4.82 4.30-5.52 10^6/uL Hemoglobin 15.0 13.3-17.7 g/dL Hematocrit 46 40-54 % Mean Corpuscular Volume 94 80-99 fL Mean Corpuscular Hemoglobin 31 25-34 pg Mean Corpuscular Hemoglobin Concent 33 32-36 g/dL Red Cell Distribution Width 12.9 10.0-14.5 % Platelet Count 465 H 130-400 10^3/uL Mean Platelet Volume 9.6 9.0-12.2 fL Immature Granulocyte % (Auto) 0 % Neutrophils (%) (Auto) 84 H 42-75 % Lymphocytes (%) (Auto) 7 L 12-44 % Monocytes (%) (Auto) 8 0-12 % Eosinophils (%) (Auto) 1 0-10 % Basophils (%) (Auto) 0 0-10 % Neutrophils # (Auto) 13.9 H 1.8-7.8 10^3/uL Lymphocytes # (Auto) 1.1 1.0-4.0 10^3/uL Monocytes # (Auto) 1.3 H 0.0-1.0 10^3/uL Eosinophils # (Auto) 0.1 0.0-0.3 10^3/uL Basophils # (Auto) 0.0 0.0-0.1 10^3/uL Immature Granulocyte # (Auto) 0.1 0.0-0.1 10^3/uL Neutrophils % (Manual) 89 % Lymphocytes % (Manual) 8 % Monocytes % (Manual) 1 % Eosinophils % (Manual) 2 % Blood Morphology Comment NORMAL Sodium Level 134 L 135-145 MMOL/L Potassium Level 3.4 L 3.6-5.0 MMOL/L Chloride Level 93 L 98-107 MMOL/L Carbon Dioxide Level 22 21-32 MMOL/L Anion Gap 19 H 5-14 MMOL/L Blood Urea Nitrogen 69 H 7-18 MG/DL Creatinine 5.33 H 0.60-1.30 MG/DL Estimat Glomerular Filtration Rate 11 BUN/Creatinine Ratio 13 Glucose Level 146 H 70-105 MG/DL Calcium Level 9.1 8.5-10.1 MG/DL Corrected Calcium 9.3 8.5-10.1 MG/DL Total Bilirubin 0.4 0.1-1.0 MG/DL Aspartate Amino Transf (AST/SGOT) 40 H 5-34 U/L Alanine Aminotransferase (ALT/SGPT) 49 0-55 U/L Alkaline Phosphatase 118 40-136 U/L Lactate Dehydrogenase 212 125-220 U/L Total Creatine Kinase 43 30-200 U/L Total Protein 7.6 6.4-8.2 GM/DL Albumin 3.7 3.2-4.5 GM/DL Lipase 15 8-78 U/L Procalcitonin 48.81 H <0.10 NG/ML Serum Alcohol < 10 <10 MG/DL Test 10/04/20 17:43 Range/Units Lactic Acid Level 1.41 0.50-2.00 MMOL/L My Orders Orders - GUSTAVO SAUNDERS BICYCLE REPAIR TECHNICIAN Covid 19 Inhouse Test (10/04/20 15:20) Cbc With Automated Diff (10/04/20 15:27) Comprehensive Metabolic Panel (10/04/20 15:27) Ua Culture If Indicated (10/04/20 15:27) Chest 1 View, Ap/Pa Only (10/04/20 15:27) Lipase (10/04/20 15:27) Alcohol (10/04/20 16:05) Drug Screen Stat (Urine) (10/04/20 16:05) Manual Differential (10/04/20 16:18) Ct Abdomen/Pelvis Wo (10/04/20 17:12) Blood Culture (10/04/20 17:18) Sputum Culture (10/04/20 17:18) Protime With Inr (10/04/20 17:18) Partial Thromboplastin Time (10/04/20 17:18) Vital Signs Adult Sepsis Patie Q15M (10/04/20 17:18) Lactic Acid Analyzer (10/04/20 17:18) Ed Iv/Invasive Line Start (10/04/20 17:19) Ns Iv 1000 Ml (Sodium Chloride 0.9%) (10/04/20 17:30) Creatine Kinase (10/04/20 18:10) LDH (10/04/20 18:10) Procalcitonin (Pct) (10/04/20 18:10) Levofloxacin 750 Mg/150 Ml Iv (Levaquin (10/04/20 18:45) Ondansetron Injection (Zofran Injectio (10/04/20 20:45) Ondansetron Injection (Zofran Injectio (10/04/20 20:43) Medications Given in ED Current Medications Medications Dose Ordered Sig/Aide Route Start Time Stop Time Status Last Admin Dose Admin Levofloxacin/ Dextrose 150 ml @ 100 mls/hr ONCE ONCE IV 10/04/20 18:45 10/04/20 20:14 DC 10/04/20 18:53 100 MLS/HR Ondansetron HCl 4 mg ONCE ONCE IVP 10/04/20 20:45 10/04/20 20:46 DC 10/04/20 22:09 4 MG Sodium Chloride 1,000 ml @ 125 mls/hr Q8H ONCE IV 10/04/20 17:30 10/05/20 01:29 10/04/20 17:47 125 MLS/HR Vital Signs/I&O 10/04/20 14:30 Temp 36.3 Pulse 92 Resp 18 B/P (MAP) 107/70 (82) Pulse Ox 94 Progress Progress Note : Progress Note Initial presentation is COVID or alcohol withdraw based on history. Ordered basic labs, UA, ETOH, ABD and COVID protocol. Labs reviewed: elevated WBC-16.5 with normal lactic-1.4. Chemistry shows ARF with BUN-69 and Creat-5.3. Discussed labs with patient, states he has never been told he had any issues with his kidneys in the past. Last labs were drawn approximately one year ago in [place]. His acute renal failure is likely due to his alcohol intake and overuse of NSAIDs. Ordered Non-contrast CT abd/pelvis. CT abd/pelvis shows significant inflammation of his hepatic flexure of colon and gallbladder. Likely from cholecystitis. Ordered loading dose of Levofloxacin 750mg IV and NS 1 liter via gravity. 1911: Called [facility] to assist with patient transfer. Diana Ansari, Isrrael Ansari at [facility]. Patient requires surgical and nephrology services. 1931: Called for transfer. 2050: Dr. Bettencourt with [facility] accepted patient transfer, images clouded. VSS. Pending transfer. Diagnostic Imaging Diagonstic Imaging: Xray Plain Films/CT/US/NM/MRI: chest Comments NAME: SWETHA ROUSSEAUDARYN Oden [facility] REC#: [id number] PT STATUS: REG ER : 1955 PHYSICIAN: GUSTAVO SAUNDERS BICYCLE REPAIR TECHNICIAN ADMIT DATE: 10/04/20/ER Signed Date of Exam:10/04/20 CHEST 1 VIEW, AP/PA ONLY EXAMINATION: Chest radiograph, portable AP view. DATE: 10/04/2020 4:24 PM. INDICATION: 65-year-old male, cough. Covid positive. COMPARISON: August 16, 2019. FINDINGS: The heart size and mediastinal contours are unchanged. There is no identified pneumothorax. There is no large pleural effusion. There are very mild streaky opacities in the right lung base. IMPRESSION: Very mild streaky opacities in the right lung base which may relate to atelectasis and/or infiltrate. The report was faxed to In[facility] Control by jl@4:42 PM. Dictated by: Dictated on workstation # [id number] Dict: 10/04/20 1640 Trans: 10/04/20 1655 [id number] Interpreted by: NIKITA NORIEGA MD Electronically signed by: NIKITA NORIEGA MD 10/04/20 1655 Diagonstic Imaging: CT Plain Films/CT/US/NM/MRI: abdomen, pelvis Comments NAME: ONELIAADALID Oden [facility] REC#: [id number] PT STATUS: REG ER : 1955 PHYSICIAN: GUSTAVO SAUNDERS BICYCLE REPAIR TECHNICIAN ADMIT DATE: 10/04/20/ER Signed Date of Exam:10/04/20 CT ABDOMEN/PELVIS WO EXAMINATION: CT Abdomen Pelvis without contrast. TECHNIQUE: Multiple contiguous axial images were obtained through the abdomen and pelvis without the use of intravenous contrast. All CT scans use one or more of the following dose optimizing techniques: automated exposure control, MA and/or KvP adjustment based on a patient size and exam type, or iterative reconstruction. HISTORY: Bilateral flank pain, difficulty urinating. COMPARISON: CT abdomen/pelvis 11/13/2017. FINDINGS: Lung bases: Bibasilar dependent atelectasis. Solid organs: Diffuse hypoattenuation of the liver compatible with hepatic steatosis. Layering stones within the gallbladder. There is significant inflammatory stranding within the right upper quadrant adjacent to the gallbladder. There is no biliary ductal dilation. Pancreas is normal. Spleen is normal. Adrenal glands are normal. The kidneys are normal without visualized calculus or hydronephrosis. Bowel: The stomach and small bowel are normal without obstruction. There are a few scattered colonic diverticula. There is significant inflammatory stranding involving the splenic flexure of the colon (series 2 image 47). The appendix is normal. Peritoneum: There is mild free fluid within the abdomen particularly within the right upper quadrant. No intra-abdominal free air or loculated fluid collection. No suspicious lymphadenopathy. Vasculature: Calcification of the aorta without aneurysm. Musculoskeletal: Degenerative changes of the spine without suspicious osseous lesion or compression fracture. Pelvis: The prostate gland is normal. The urinary bladder is decompressed which limits evaluation. IMPRESSION: 1. Significant inflammation within the right upper quadrant along the hepatic flexure of the colon and gallbladder. Differential consideration could include an infectious or inflammatory colitis versus acute cholecystitis with reactive inflammation of the colon. Recommend correlation with physical exam. 2. Cholelithiasis. 3. Colonic diverticulosis. Dictated by: Dictated on workstation # [id number] Dict: 10/04/201734 Trans: 10/04/201805 [facility] [id number] Interpreted by: BEN JARVIS DO Electronically signed by: BEN JARVIS DO 10/04/201805 Departure Impression Primary Impression: Acute renal failure (ARF) Additional Impressions: Cholecystitis Alcohol dependence Disposition: XFER SHT-TRM HOSP Condition: Stable Transfer Transfer Reason: Exceeds level of care Time Spoke to Accepting Phy: 19:32 Transfer Progress Notes Called transfer line for possible admission. At 2050 Dr. Bettencourt accepted patient transfer, pending bed assignment at this time. Transfer Facility: [facility] Method of Transfer: EMS Departure-Patient Inst. Referrals: NO,LOCAL PHYSICIAN (PCP/Family) Primary Care Physician GUSTAVO SAUNDERS BICYCLE REPAIR TECHNICIAN Oct 04, 2020 15:23
[2020-10-04 16:22] LABS: BASOPHILS % (AUTO) 0 % (0-10); EOSINOPHILS # (AUTO) 0.1 10^3/uL (0.0-0.3); EOSINOPHILS % (AUTO) 1 % (0-10); HEMATOCRIT 46 % (40-54); LYMPHOCYTES # (AUTO) 1.1 10^3/uL (1.0-4.0); LYMPHOCYTES % (AUTO) 7 % (12-44); MEAN CORPUSCULAR HEMOGLOBIN 31 pg (25-34); MEAN CORPUSCULAR HGB CONC 33 g/dL (32-36); MEAN CORPUSCULAR VOLUME 94 fL (80-99); MEAN PLATELET VOLUME 9.6 fL (9.0-12.2); MONOCYTES # (AUTO) 1.3 10^3/uL (0.0-1.0); MONOCYTES % (AUTO) 8 % (0-12); NEUTROPHILS # (AUTO) 13.9 10^3/uL (1.8-7.8); NEUTROPHILS % (AUTO) 84 % (42-75); PLATELET COUNT 465 10^3/uL (130-400); WHITE BLOOD COUNT 16.5 10^3/uL (4.3-11.0)
[2020-10-04 16:33] LABS: BILIRUBIN,URINE 1+ (NEGATIVE); CLARITY,URINE CLEAR; COLOR,URINE ORANGE; GLUCOSE, URINE (UA) NEGATIVE (NEGATIVE); KETONES,URINE NEGATIVE (NEGATIVE); LEUKOCYTE ESTERASE ,URINE NEGATIVE (NEGATIVE); NITRITE,URINE NEGATIVE (NEGATIVE); PROTEIN,URINE TRACE (NEGATIVE)
[2020-10-04 16:34] LABS: ALBUMIN 3.7 GM/DL (3.2-4.5); CHLORIDE 93 MMOL/L (98-107); POTASSIUM 3.4 MMOL/L (3.6-5.0); SODIUM 134 MMOL/L (135-145)
[2020-10-04 16:36] LABS: CALCIUM 9.1 MG/DL (8.5-10.1)
[2020-10-04 16:37] LABS: GLUCOSE 146 MG/DL (70-105); TOTAL PROTEIN 7.6 GM/DL (6.4-8.2)
[2020-10-04 16:38] LABS: CARBON DIOXIDE 22 MMOL/L (21-32)
[2020-10-04 16:39] LABS: BILIRUBIN,TOTAL 0.4 MG/DL (0.1-1.0)
[2020-10-04 16:40] LABS: ALKALINE PHOSPHATASE 118 U/L (40-136)
[2020-10-04 16:41] LABS: CREATININE SERUM 5.33 MG/DL (0.60-1.30); GFR ESTIMATED 11
[2020-10-04 16:42] LABS: BUN/CREATININE RATIO 13
[2020-10-04 16:42] LABS: AMORPHOUS SEDIMENT,UR MOD AMOR URATES /LPF; BACTERIA,URINE NEGATIVE /HPF; RBC,URINE 0-2 /HPF; RENAL EPITHELIAL CELLS,URINE RARE /HPF; SQUAMOUS EPITHELIAL CELL,UR 0-2 /HPF; WBC,URINE RARE /HPF
[2020-10-04 16:43] LABS: GRANULAR CASTS,URINE 0-2 /LPF
[2020-10-04 16:43] LABS: ALANINE AMINOTRANSFERASE 49 U/L (0-55)
--- NOTE | 2020-10-04 16:43 | Diagnostic Imaging Report ---
EXAMINATION: Chest radiograph, portable AP view. DATE: 10/04/2020 4:24 PM. INDICATION: 65-year-old male, cough. Covid positive. COMPARISON: August 16, 2019. FINDINGS: The heart size and mediastinal contours are unchanged. There is no identified pneumothorax. There is no large pleural effusion. There are very mild streaky opacities in the right lung base. IMPRESSION: Very mild streaky opacities in the right lung base which may relate to atelectasis and/or infiltrate. The report was faxed to Infection Control by deepthi@4:42 PM. Dictated by: Dictated on workstation # [id number]
[2020-10-04 16:44] LABS: LIPASE 15 U/L (8-78)
[2020-10-04 16:45] LABS: AMPHETAMINE SCREEN, URINE NEGATIVE (NEGATIVE); BARBITURATE SCREEN URINE NEGATIVE (NEGATIVE); BENZODIAZEPINES SCREEN URINE NEGATIVE (NEGATIVE); CANNABINOID SCREEN, URINE NEGATIVE (NEGATIVE); COCAINE SCREEN URINE NEGATIVE (NEGATIVE); METHADONE STAT NEGATIVE (NEGATIVE); METHAMPHETAMINE SCREEN URINE S NEGATIVE (NEGATIVE); OPIATE SCREEN URINE NEGATIVE (NEGATIVE); OXYCODONE STAT NEGATIVE (NEGATIVE); PROPOXYPHENE STAT NEGATIVE (NEGATIVE); TRICYCLIC ANTIDEPRESSANTS SCRE NEGATIVE (NEGATIVE)
[2020-10-04 17:08] LABS: EOSINOPHILS % (MANUAL) 2 %; LYMPHOCYTES % (MANUAL) 8 %; MONOCYTES % (MANUAL) 1 %; NEUTROPHILS % (MANUAL) 89 %; RBC MORPH NORMAL
[2020-10-04] MEDS ORDERED: NS IV 1000 ML 1,000 ML IV ONE (17:30)
[2020-10-04 17:32] LABS: INR 1.2 (0.8-1.4); PROTHROMBIN TIME PATIENT 15.3 SEC (12.2-14.7)
--- NOTE | 2020-10-04 17:53 | Diagnostic Imaging Report ---
EXAMINATION: CT Abdomen Pelvis without contrast. TECHNIQUE: Multiple contiguous axial images were obtained through the abdomen and pelvis without the use of intravenous contrast. All CT scans use one or more of the following dose optimizing techniques: automated exposure control, MA and/or KvP adjustment based on a patient size and exam type, or iterative reconstruction. HISTORY: Bilateral flank pain, difficulty urinating. COMPARISON: CT abdomen/pelvis 11/13/2017. FINDINGS: Lung bases: Bibasilar dependent atelectasis. Solid organs: Diffuse hypoattenuation of the liver compatible with hepatic steatosis. Layering stones within the gallbladder. There is significant inflammatory stranding within the right upper quadrant adjacent to the gallbladder. There is no biliary ductal dilation. Pancreas is normal. Spleen is normal. Adrenal glands are normal. The kidneys are normal without visualized calculus or hydronephrosis. Bowel: The stomach and small bowel are normal without obstruction. There are a few scattered colonic diverticula. There is significant inflammatory stranding involving the splenic flexure of the colon (series 2 image 47). The appendix is normal. Peritoneum: There is mild free fluid within the abdomen particularly within the right upper quadrant. No intra-abdominal free air or loculated fluid collection. No suspicious lymphadenopathy. Vasculature: Calcification of the aorta without aneurysm. Musculoskeletal: Degenerative changes of the spine without suspicious osseous lesion or compression fracture. Pelvis: The prostate gland is normal. The urinary bladder is decompressed which limits evaluation. IMPRESSION: 1. Significant inflammation within the right upper quadrant along the hepatic flexure of the colon and gallbladder. Differential consideration could include an infectious or inflammatory colitis versus acute cholecystitis with reactive inflammation of the colon. Recommend correlation with physical exam. 2. Cholelithiasis. 3. Colonic diverticulosis. Dictated by: Dictated on workstation # [id number]
--- NOTE | 2020-10-04 18:00 | NUR ---
pt vitals: 107/51, HR 87, 93% ON RA.
[2020-10-04] MEDS ORDERED: LEVOFLOXACIN 750 MG/150 ML IV 150 ML IV ONE (18:45)
[2020-10-04] MEDS ORDERED: ONDANSETRON 4 MG/2 ML (SDV) Z0FRAN ONE (20:43)
[2020-10-04] MEDS ORDERED: ONDANSETRON 4 MG/2 ML (SDV) Z0FRAN IVP ONE (20:45)
--- NOTE | 2020-10-04 22:27 | NUR ---
[facility] at the bedside to transport. Pt. is going to [facility] at
[2020-10-04 22:34] VITALS: BP 109/72
== END 2020-10-04 22:51 | disposition short-term general hospital (02) ==
LOC: EDUNIT# 13:21 → ER 13:22
DX: N17.9 Acute kidney failure, unspecified (principal); K81.9 Cholecystitis, unspecified; E66.9 Obesity, unspecified; J44.9 Chronic obstructive pulmonary disease, unspecified; I10 Essential (primary) hypertension; F10.20 Alcohol dependence, uncomplicated; Z20.828 Contact with and (suspected) exposure to other viral communicable diseases; Z68.34 Body mass index [BMI] 34.0-34.9, adult; Z79.52 Long term (current) use of systemic steroids
CPT/HCPCS: 71045; 74176; 80053; 80306; 81000; 82550; 83605; 83615; 83690; 84145; 85007; 85027; 85610; 85730; 87040; 99285; G0480; U0002; 36415; 80320; 87635

== ENCOUNTER 2020-10-21 11:46 | Emergency (ER) | payer MEDICARE ==
[~2020-10-21] VITALS: Ht 177.8 cm; Wt 106.8 kg
[2020-10-21 12:29] LABS: BASOPHILS % (AUTO) 0 % (0-10); EOSINOPHILS # (AUTO) 0.1 10^3/uL (0.0-0.3); EOSINOPHILS % (AUTO) 2 % (0-10); HEMATOCRIT 36 % (40-54); HEMOGLOBIN 12.1 g/dL (13.3-17.7); LYMPHOCYTES # (AUTO) 1.4 10^3/uL (1.0-4.0); LYMPHOCYTES % (AUTO) 17 % (12-44); MEAN CORPUSCULAR HEMOGLOBIN 30 pg (25-34); MEAN CORPUSCULAR HGB CONC 34 g/dL (32-36); MEAN CORPUSCULAR VOLUME 91 fL (80-99); MEAN PLATELET VOLUME 9.1 fL (9.0-12.2); MONOCYTES # (AUTO) 1.1 10^3/uL (0.0-1.0); MONOCYTES % (AUTO) 13 % (0-12); NEUTROPHILS # (AUTO) 5.6 10^3/uL (1.8-7.8); NEUTROPHILS % (AUTO) 68 % (42-75); PLATELET COUNT 457 10^3/uL (130-400); WHITE BLOOD COUNT 8.2 10^3/uL (4.3-11.0)
[2020-10-21 12:32] LABS: ALBUMIN 3.7 GM/DL (3.2-4.5); CHLORIDE 100 MMOL/L (98-107); POTASSIUM 3.3 MMOL/L (3.6-5.0); SODIUM 135 MMOL/L (135-145)
[2020-10-21 12:33] LABS: CALCIUM 8.7 MG/DL (8.5-10.1)
[2020-10-21 12:34] LABS: GLUCOSE 146 MG/DL (70-105); TOTAL PROTEIN 6.8 GM/DL (6.4-8.2)
[2020-10-21 12:35] LABS: CARBON DIOXIDE 23 MMOL/L (21-32)
[2020-10-21 12:36] LABS: BILIRUBIN,TOTAL 0.6 MG/DL (0.1-1.0)
[2020-10-21 12:38] LABS: ALKALINE PHOSPHATASE 73 U/L (40-136); CREATININE SERUM 0.95 MG/DL (0.60-1.30); GFR ESTIMATED > 60
[2020-10-21 12:39] LABS: BUN/CREATININE RATIO 14
[2020-10-21 12:41] LABS: ALANINE AMINOTRANSFERASE 20 U/L (0-55)
--- NOTE | 2020-10-21 12:55 | ED Integumentary General ---
General Chief Complaint: Skin/Wound Problems Stated Complaint: WOUND DRAINAGE Nursing Triage Note: Patient reports surgical site on abdomen started draining yesterday Source: patient Exam Limitations: no limitations History of Present Illness Date Seen by Provider: Oct 21, 2020 Time Seen by Provider: 12:30 Initial Comments Patient is a 65-year-old male who presents to the emergency room with a chief complaint of concern for wound dehiscence. Patient states that he had gallbladder surgery on October 05. He had subsequent wound dehiscence and had to go back in for revision of his surgical wound. He has had a wound VAC in place since that time up to a couple of days ago. The home health nurse reportedly took pictures of the wound and sent them to the surgeon and he discontinued the wound VAC at that time. Patient continues to deny any complaints of pain, nausea, bowel issues. No fevers no shortness of breath no chest pain. He states that he is coughed a few times and the wound has "opened up" larger than it was before. He now has an opening at the top of the surgical wound as well as 1 at the inferior margin of the surgical wound. All other review of systems reviewed and negative except as stated above. Timing/Duration: this morning Severity: moderate Location: torso Possible Cause: no cause identified Associated Symptoms: denies symptoms Allergies and Home Medications Allergies Coded Allergies: No Known Drug Allergies (Unverified , 08/25/09) Home Medications Albuterol Sulfate 6.7 Gm Hfa.aer.ad, 6.7 GM IH BID, (Reported) inhale 2 puffs two times a day as needed Albuterol Sulfate 6.7 Gm Hfa.aer.ad, 2 PUFF IH Q6H PRN for SHORTNESS OF BREATH Prescribed by: NARESH VARGAS on 07/30/17 1305 Amlodipine Besylate 10 Mg Tablet, 1 TAB PO DAILY, (Reported) Atorvastatin Calcium 20 Mg Tablet, 10 MG PO HS, (Reported) Benzonatate 100 Mg Capsule, 1-2 TAB PO TID Prescribed by: NANI COLLAZO on 10/08/17 2111 Ciprofloxacin HCl 500 Mg Tablet, 500 MG PO BID Prescribed by: NARESH VARGAS on 07/30/17 1303 Cyclobenzaprine HCl 5 Mg Tablet, 5 MG PO TID PRN for PAIN-MODERATE Prescribed by: NILA SNELL on 11/13/17 1112 Doxycycline Hyclate 50 Mg Capsule, 50 MG PO BID, (Reported) Doxycycline Monohydrate 100 Mg Capsule, 100 MG PO BID Prescribed by: NANI COLLAZO on 10/08/172110 Furosemide 20 Mg Tablet, 40 MG PO DAILY, (Reported) Guaifenesin/Dextromethorphan 1 Each Tbmp.12hr, 1 EACH PO BID Prescribed by: NANI COLLAZO on 10/08/172110 Hydrocodone Bit/Acetaminophen 1 Ea Tab, 1-2 EA PO QID PRN for PAIN FOR PAIN Prescribed by: DAHIANA CONTE on 10/13/14 1248 Ketoprofen 75 Mg Capsule, 75 MG PO TID Prescribed by: NARESH VARGAS on 07/30/17 1303 Meloxicam 15 Mg Tablet, 15 MG PO DAILY PRN for PAIN, (Reported) Methylprednisolone 4 Mg Tab.ds.pk, 4 MG PO UD Prescribed by: NANI COLLAZO on 10/08/172110 Naproxen 500 Mg Tablet, 500 MG PO BID PRN for PAIN-MODERATE TO SEVERE Prescribed by: NILA SNELL on 04/13/17 1151 Omeprazole 20 Mg Capsule.dr, 1 TAB PO DAILY, (Reported) Phenazopyridine HCl 200 Mg Tablet, 1 TAB PO Q8H PRN for pain Prescribed by: NARESH VARGAS on 07/30/17 1303 Prednisone 20 Mg Tab, 40 MG PO DAILY Prescribed by: NARESH VARGAS on 07/30/17 1303 Prednisone 20 Mg Tab, 60 MG PO DAILY Prescribed by: SOFY AKINS MD on 08/16/19 1139 Simvastatin 20 Mg Tablet, 20 MG PO d, (Reported) Tramadol HCl 50 Mg Tablet, 50 MG PO Q6H PRN for PAIN Prescribed by: NILA SNELL on 01/24/17 1427 Zolpidem Tartrate 10 Mg Tablet, 10 MG PO HS, (Reported) Patient Home Medication List Home Medication List Reviewed: Yes Review of Systems Review of Systems Constitutional: no symptoms reported EENTM: no symptoms reported Respiratory: no symptoms reported Cardiovascular: no symptoms reported Gastrointestinal: no symptoms reported Genitourinary: no symptoms reported Musculoskeletal: no symptoms reported Skin: other (Wound dehiscence) Past Jwfnntg-Jwzfnj-Apmlnm Hx Patient Social History Alcohol Use: Occasionally Uses Number of Drinks Today: AA Alcohol Beverage of Choice: Beer Recreational Drug Use: No Smoking Status: Never a Smoker 2nd Hand Smoke Exposure: No Recent Foreign Travel: No Contact w/Someone Who Travel: No Recent Infectious Disease Expo: No Recent Hopitalizations: No Immunizations Up To Date Tetanus Booster (TDap): Less than 5yrs Date of Pneumonia Vaccine: Aug 31, 2007 Date of Influenza Vaccine: Oct 01, 2017 Seasonal Allergies Seasonal Allergies: No Past Medical History Surgeries: Yes (KNEE ARTHROSCOPY 2007) Orthopedic Respiratory: Yes Chronic Bronchitis, COPD, Emphysema Cardiac: Yes Hypertension Neurological: No Reproductive Disorders: No Genitourinary: No Gastrointestinal: No Musculoskeletal: Yes Arthritis Endocrine: No (OBESITY) HEENT: No Cancer: No Psychosocial: No Integumentary: No Blood Disorders: No Physical Exam Vital Signs Vital Signs - First Documented 10/21/20 11:48 Temp 37.0 Pulse 90 Resp 18 B/P (MAP) 141/82 (101) Pulse Ox 96 O2 Delivery Room Air Capillary Refill : Less Than 3 Seconds General Appearance: WD/WN, no apparent distress Cardiovascular: regular rate, rhythm Respiratory: no respiratory distress, no accessory muscle use Gastrointestinal: non tender, soft Neurologic/Psychiatric: alert, normal mood/affect, oriented x 3 Skin: normal color, warm/dry, other (Patient has a midline surgical scar appr oximately 17 cm. At the apex of the surgical site the wound is dehisced about 2.4 cm with a small area of tissue right at the midline. width is 2.2cm Caudal to this is another area of dehiscence approximately 4 cm both of these wounds are a depth of 2.5 - 3cm) Procedures/Interventions Suture Size: 5-0 Progress/Results/Core Measures Results/Orders Lab Results Laboratory Tests Test 10/21/20 12:00 Range/Units White Blood Count 8.2 4.3-11.0 10^3/uL Red Blood Count 3.99 L 4.30-5.52 10^6/uL Hemoglobin 12.1 L 13.3-17.7 g/dL Hematocrit 36 L 40-54 % Mean Corpuscular Volume 91 80-99 fL Mean Corpuscular Hemoglobin 30 25-34 pg Mean Corpuscular Hemoglobin Concent 34 32-36 g/dL Red Cell Distribution Width 12.0 10.0-14.5 % Platelet Count 457 H 130-400 10^3/uL Mean Platelet Volume 9.1 9.0-12.2 fL Immature Granulocyte % (Auto) 0 % Neutrophils (%) (Auto) 68 42-75 % Lymphocytes (%) (Auto) 17 12-44 % Monocytes (%) (Auto) 13 H 0-12 % Eosinophils (%) (Auto) 2 0-10 % Basophils (%) (Auto) 0 0-10 % Neutrophils # (Auto) 5.6 1.8-7.8 10^3/uL Lymphocytes # (Auto) 1.4 1.0-4.0 10^3/uL Monocytes # (Auto) 1.1 H 0.0-1.0 10^3/uL Eosinophils # (Auto) 0.1 0.0-0.3 10^3/uL Basophils # (Auto) 0.0 0.0-0.1 10^3/uL Immature Granulocyte # (Auto) 0.0 0.0-0.1 10^3/uL Sodium Level 135 135-145 MMOL/L Potassium Level 3.3 L 3.6-5.0 MMOL/L Chloride Level 100 98-107 MMOL/L Carbon Dioxide Level 23 21-32 MMOL/L Anion Gap 12 5-14 MMOL/L Blood Urea Nitrogen 13 7-18 MG/DL Creatinine 0.95 0.60-1.30 MG/DL Estimat Glomerular Filtration Rate > 60 BUN/Creatinine Ratio 14 Glucose Level 146 H 70-105 MG/DL Lactic Acid Level 1.51 0.50-2.00 MMOL/L Calcium Level 8.7 8.5-10.1 MG/DL Corrected Calcium 8.9 8.5-10.1 MG/DL Total Bilirubin 0.6 0.1-1.0 MG/DL Aspartate Amino Transf (AST/SGOT) 12 5-34 U/L Alanine Aminotransferase (ALT/SGPT) 20 0-55 U/L Alkaline Phosphatase 73 40-136 U/L Total Protein 6.8 6.4-8.2 GM/DL Albumin 3.7 3.2-4.5 GM/DL My Orders Orders - KATHLEEN LAKE MD Cbc With Automated Diff (10/21/20 12:12) Comprehensive Metabolic Panel (10/21/20 12:12) Lactic Acid Analyzer (10/21/20 12:12) Blood Culture (10/21/20 12:12) Wound Culture (10/21/20 12:12) Vital Signs/I&O 10/21/20 11:48 Temp 37.0 Pulse 90 Resp 18 B/P (MAP) 141/82 (101) Pulse Ox 96 O2 Delivery Room Air Blood Pressure Mean: 101 Progress Progress Note : Time: 13:09 Progress Note Discussed with Dr. Fab Sharif, general surgeon on at [facility] for patient surgeon Dr. Ramos. Dr. Sharif recommends he be transferred up to emergency department for further evaluation and management of this second wound dehiscence. Departure Impression Primary Impression: Surgical wound dehiscence Qualified Codes: T81.31XA - Disruption of external operation (surgical) wound, not elsewhere classified, initial encounter Disposition: XF SHT-TRM HOSP Condition: Stable Transfer Transfer Reason: Exceeds level of care Time Spoke to Accepting Phy: 13:00 Transfer Progress Notes Discussed with [facility] transfer staff as well as Dr. Fab Sharif who accepts the patient to the emergency department at Departure-Patient Inst. Referrals: NO,LOCAL PHYSICIAN (PCP/Family) Primary Care Physician KATHLEEN LAKE MD Oct 21, 2020 12:55
--- NOTE | 2020-10-21 13:15 | NUR ---
[facility] and [facility] unable to take patient at this time. Both report 3 hours before being able to get patient.
--- NOTE | 2020-10-21 13:22 | NUR ---
[facility] unable to take patient at this time. reports 3 hour before they would be able to
[2020-10-21 15:24] VITALS: BP 115/69
== END 2020-10-21 12:25 | disposition short-term general hospital (02) ==
LOC: EDUNIT# 11:46 → ER 11:48
DX: T81.31XA Disruption of external operation (surgical) wound, not elsewhere classified, initial encounter (principal); E66.9 Obesity, unspecified; I10 Essential (primary) hypertension; J44.9 Chronic obstructive pulmonary disease, unspecified; Z79.52 Long term (current) use of systemic steroids
CPT/HCPCS: 36415; 80053; 83605; 85025; 87040; 87070; 87077; 87205

== ENCOUNTER 2020-11-14 11:59 | Emergency (ER) | payer MEDICARE ==
[~2020-11-14] VITALS: Ht 177 cm; Wt 99.0 kg
--- NOTE | 2020-11-14 12:29 | ED Lower Extremity ---
General Chief Complaint: Lower Extremity Stated Complaint: PINCH NERVE Nursing Triage Note: ARRIVED VIA WC TO FT1. COMPLAINS OF RIGHT LOWER BACK PAIN THAT RADIATES DOWN HIS RIGHT LEG ALONG WITH NUMBESS. Nursing Sepsis Screen: No Definite Risk Source: patient Exam Limitations: no limitations History of Present Illness Date Seen by Provider: Nov 14, 2020 Time Seen by Provider: 12:27 Initial Comments To ER with complaints of right low back pain. It started in the midline of his back then moved to the right lower back and now goes all the way down the right leg. Present for a few days. No fevers. No history of cancer. No loss of bowel or bladder control and no numbness of his genitals. He did have an open cholecystectomy at 9 days ago but denies any abdominal pains. Normal bowel movements. Started 4 days ago, only using tylenol for pain. Onset: other Severity: moderate Pain/Injury Location: right other Method of Injury: unknown Modifying Factors: Worse With Movement Allergies and Home Medications Allergies Coded Allergies: No Known Drug Allergies (Unverified , 08/25/09) Home Medications Albuterol Sulfate 6.7 Gm Hfa.aer.ad, 6.7 GM IH BID, (Reported) inhale 2 puffs two times a day as needed Albuterol Sulfate 6.7 Gm Hfa.aer.ad, 2 PUFF IH Q6H PRN for SHORTNESS OF BREATH Prescribed by: NARESH VARGAS on 07/30/17 1305 Amlodipine Besylate 10 Mg Tablet, 1 TAB PO DAILY, (Reported) Atorvastatin Calcium 20 Mg Tablet, 10 MG PO HS, (Reported) Benzonatate 100 Mg Capsule, 1-2 TAB PO TID Prescribed by: NANI COLLAZO on 10/08/172110 Ciprofloxacin HCl 500 Mg Tablet, 500 MG PO BID Prescribed by: NARESH VARGAS on 07/30/17 130 Cyclobenzaprine HCl 5 Mg Tablet, 5 MG PO TID PRN for PAIN-MODERATE Prescribed by: NILA SNELL on 11/13/17 111 Doxycycline Hyclate 50 Mg Capsule, 50 MG PO BID, (Reported) Doxycycline Monohydrate 100 Mg Capsule, 100 MG PO BID Prescribed by: NANI COLLAZO on 10/08/172110 Furosemide 20 Mg Tablet, 40 MG PO DAILY, (Reported) Guaifenesin/Dextromethorphan 1 Each Tbmp.12hr, 1 EACH PO BID Prescribed by: NANI COLLAZO on 10/08/172110 Hydrocodone Bit/Acetaminophen 1 Ea Tab, 1-2 EA PO QID PRN for PAIN FOR PAIN Prescribed by: DAHIANA CONTE on 10/13/14 1248 Hydrocodone/Acetaminophen 1 Each Tablet, 1 EACH PO Q4H PRN for PAIN-MODERATE (5- 7) Prescribed by: NILA SNELL on 11/14/20 1514 Ketoprofen 75 Mg Capsule, 75 MG PO TID Prescribed by: NARESH VARGAS on 07/30/17 1303 Meloxicam 15 Mg Tablet, 15 MG PO DAILY PRN for PAIN, (Reported) Meloxicam 7.5 Mg Tablet, 7.5 MG PO DAILY Prescribed by: NILA SNELL on 11/14/20 1513 Methylprednisolone 4 Mg Tab.ds.pk, 4 MG PO UD Prescribed by: NANI COLLZAO on 10/08/172110 Naproxen 500 Mg Tablet, 500 MG PO BID PRN for PAIN-MODERATE TO SEVERE Prescribed by: NILA SNELL on 04/13/17 1151 Omeprazole 20 Mg Capsule.dr, 1 TAB PO DAILY, (Reported) Phenazopyridine HCl 200 Mg Tablet, 1 TAB PO Q8H PRN for pain Prescribed by: NARESH VARGAS on 07/30/17 1303 Prednisone 20 Mg Tab, 40 MG PO DAILY Prescribed by: NARESH VARGAS on 07/30/17 1303 Prednisone 20 Mg Tab, 60 MG PO DAILY Prescribed by: SOFY AKINS MD on 08/16/19 1139 Simvastatin 20 Mg Tablet, 20 MG PO d, (Reported) Tramadol HCl 50 Mg Tablet, 50 MG PO Q6H PRN for PAIN Prescribed by: NILA SNELL on 01/24/17 1427 Zolpidem Tartrate 10 Mg Tablet, 10 MG PO HS, (Reported) Patient Home Medication List Home Medication List Reviewed: Yes Review of Systems Constitutional: see HPI EENTM: see HPI Respiratory: no symptoms reported Cardiovascular: no symptoms reported Genitourinary: no symptoms reported Musculoskeletal: see HPI, back pain Skin: no symptoms reported Psychiatric/Neurological: No Symptoms Reported Past Opdtest-Gctxvq-Kjjgfr Hx Patient Social History Alcohol Beverage of Choice: Beer 2nd Hand Smoke Exposure: No Recent Infectious Disease Expo: No Recent Hopitalizations: No (RECENT OPEN GALLBLADDER AT ) Immunizations Up To Date Tetanus Booster (TDap): Less than 5yrs Date of Pneumonia Vaccine: Aug 31, 2007 Date of Influenza Vaccine: Oct 01, 2017 Seasonal Allergies Seasonal Allergies: No Past Medical History Surgeries: Yes (KNEE ARTHROSCOPY 2007) Gallbladder, Orthopedic Respiratory: Yes Chronic Bronchitis, COPD, Emphysema Cardiac: Yes Hypertension Neurological: No Reproductive Disorders: No Genitourinary: No Gastrointestinal: No Musculoskeletal: Yes Arthritis Endocrine: No (OBESITY) HEENT: No Cancer: No Psychosocial: No Integumentary: No Blood Disorders: No Physical Exam Vital Signs Vital Signs - First Documented 11/14/20 12:15 Temp 37.0 Pulse 66 Resp 16 B/P (MAP) 149/71 (97) Pulse Ox 96 O2 Delivery Room Air Capillary Refill : Less Than 3 Seconds Height, Weight, BMI Height: 5'10.00" Weight: 210lbs. oz. 95.092183zn; 31.00 BMI Method:Estimated General Appearance: WD/WN, no apparent distress Neck: non-tender, full range of motion Respiratory: no respiratory distress, no accessory muscle use Hips: bilateral hip non-tender, bilateral hip normal inspection, bilateral hip normal range of motion Legs: bilateral leg non-tender, bilateral leg normal inspection, bilateral leg normal range of motion Knees: bilateral knee non-tender, bilateral knee normal inspection, bilateral knee normal range of motion Ankles: bilateral ankle non-tender, bilateral ankle normal inspection, bilateral ankle normal range of motion Feet: bilateral foot non-tender, bilateral foot normal inspection, bilateral foot normal range of motion Neurologic/Psychiatric: alert, normal mood/affect, oriented x 3 Skin: normal color, warm/dry Procedures/Interventions Suture Size: 5-0 Progress/Results/Core Measures Results/Orders Lab Results Laboratory Tests Test 11/14/20 13:54 Range/Units White Blood Count 8.9 4.3-11.0 10^3/uL Red Blood Count 3.94 L 4.30-5.52 10^6/uL Hemoglobin 11.6 L 13.3-17.7 g/dL Hematocrit 35 L 40-54 % Mean Corpuscular Volume 88 80-99 fL Mean Corpuscular Hemoglobin 29 25-34 pg Mean Corpuscular Hemoglobin Concent 34 32-36 g/dL Red Cell Distribution Width 12.2 10.0-14.5 % Platelet Count 342 130-400 10^3/uL Mean Platelet Volume 8.9 L 9.0-12.2 fL Immature Granulocyte % (Auto) 0 % Neutrophils (%) (Auto) 68 42-75 % Lymphocytes (%) (Auto) 17 12-44 % Monocytes (%) (Auto) 14 H 0-12 % Eosinophils (%) (Auto) 0 0-10 % Basophils (%) (Auto) 0 0-10 % Neutrophils # (Auto) 6.0 1.8-7.8 10^3/uL Lymphocytes # (Auto) 1.5 1.0-4.0 10^3/uL Monocytes # (Auto) 1.2 H 0.0-1.0 10^3/uL Eosinophils # (Auto) 0.0 0.0-0.3 10^3/uL Basophils # (Auto) 0.0 0.0-0.1 10^3/uL Immature Granulocyte # (Auto) 0.0 0.0-0.1 10^3/uL Erythrocyte Sedimentation Rate 105 H 0-30 MM/HR Sodium Level 133 L 135-145 MMOL/L Potassium Level 3.6 3.6-5.0 MMOL/L Chloride Level 96 L 98-107 MMOL/L Carbon Dioxide Level 28 21-32 MMOL/L Anion Gap 9 5-14 MMOL/L Blood Urea Nitrogen 14 7-18 MG/DL Creatinine 1.02 0.60-1.30 MG/DL Estimat Glomerular Filtration Rate > 60 BUN/Creatinine Ratio 14 Glucose Level 109 H 70-105 MG/DL Calcium Level 9.2 8.5-10.1 MG/DL C-Reactive Protein High Sensitivity 17.86 H 0.00-0.50 MG/DL My Orders Orders - NILA SNELL APRN Ct Lumbar Spine Wo (11/14/20 12:25) Ketorolac Injection (Toradol Injection) (11/14/20 12:30) Hydrocodone/Apap 5/325 Tablet (Lortab 5 (11/14/20 12:30) Erythrocyte Sedimentation Rate (11/14/20 13:27) Hs C Reactive Protein (11/14/20 13:27) Ed Iv/Invasive Line Start (11/14/20 13:27) Cbc With Automated Diff (11/14/20 13:27) Basic Metabolic Panel (11/14/20 13:27) Fentanyl Injection (Sublimaze Injection (11/14/20 13:30) Mri Lumbar Spine W/Wo Contrast (11/14/20 13:27) Gadobutrol Inj (Radiology) (Gadavist Inj (11/14/20 14:30) Medications Given in ED Current Medications Medications Dose Ordered Sig/Aide Route Start Time Stop Time Status Last Admin Dose Admin Acetaminophen/ Hydrocodone Bitart 1 tab ONCE ONCE PO 11/14/20 12:30 11/14/20 12:31 DC 11/14/20 12:40 1 TAB Fentanyl Citrate 50 mcg ONCE ONCE IVP 11/14/20 13:30 11/14/20 13:31 DC 11/14/20 13:55 50 MCG Gadobutrol 10 mmol ONCE ONCE IV 11/14/20 14:30 11/14/20 14:31 DC 11/14/20 14:35 10 MMOL Ketorolac Tromethamine 30 mg ONCE ONCE IM 11/14/20 12:30 11/14/20 12:31 DC 11/14/20 12:40 30 MG Vital Signs/I&O 11/14/20 12:15 Temp 37.0 Pulse 66 Resp 16 B/P (MAP) 149/71 (97) Pulse Ox 96 O2 Delivery Room Air Blood Pressure Mean: 97 Diagnostic Imaging Diagonstic Imaging: MRI Comments NAME: ADALID ROUSSEAU [facility]ille [facility] REC#: [id number] PT STATUS: REG ER : 1955 PHYSICIAN: NILA SNELL APRN ADMIT DATE: 11/14/20/ER Draft Date of Exam:11/14/20 MRI LUMBAR SPINE W/WO CONTRAST PROCEDURE: MRI lumbar spine with and without contrast. TECHNIQUE: Multiplanar, multisequence MRI of the lumbar spine was performed with and without contrast. INDICATION: Low back pain. Abnormal CT. COMPARISON: CT lumbar spine without contrast 11/14/2020. FINDINGS: There are 5 lumbar-type vertebral bodies for the purposes of this report. Normal alignment. Vertebral body heights are preserved. Abnormal signal at L2-L3 and the inferior endplate of L1 is most compatible with Modic type I degenerative endplate changes. There is some expected associated enhancement. There is no edema or enhancement within the affected disc spaces. Bone marrow signal is otherwise unremarkable. No suspicious enhancement. No abnormal signal or enhancement in the conus which terminates at L1. Normal morphology of the cauda equina. The visualized abdominal pelvic contents are unremarkable. L1-L2: Normal. L2-L3: Disc osteophyte complex, ligamentous hypertrophy and facet arthropathy result in moderate spinal canal stenosis. Severe left and moderate right neural foraminal narrowing. L3-L4: Annular disc bulge, ligamentous hypertrophy and facet arthropathy result in moderate spinal canal stenosis. Mild to moderate bilateral neural foraminal narrowing. L4-L5: Fmkv-tv-xmiyjnpc spinal canal stenosis primarily due to ligamentous hypertrophy and facet arthropathy. Mild bilateral neural foraminal narrowing. L5-S1: Moderate facet arthropathy. No spinal canal, lateral recess or neural foraminal narrowing. IMPRESSION: 1. Edema and enhancement at L2-L3 and the inferior endplate of L1 is a morphology most compatible with Modic type I degenerative endplate changes. No findings suspicious for adjacent abscess formation. An infectious process is considered less likely but could have a similar appearance. Recommend continued follow-up versus transpedicular biopsy if there is a strong clinical suspicion. 2. Spondylotic changes result in moderate spinal canal stenosis at L2-L3 and L3-L4. 3. Scattered neural foraminal narrowing as above. Dictated on workstation # [id number] Dict: 11/14/20 1453 Trans: 11/14/20 1504 [facility] [id number] Interpreted by: PENNY RUGGIERO MD Electronically signed by: Departure Communication (Admissions) CRP and erythrocyte sedimentation rate are elevated however, he is only 9 days post open cholecystectomy. Impression Primary Impression: Lumbar radiculopathy Disposition: 01 HOME, SELF-CARE Condition: Stable Departure-Patient Inst. Decision time for Depature: 12:51 Referrals: SUBHA GAVIN MD NO,LOCAL PHYSICIAN (PCP) Primary Care Physician Patient Instructions: Radiculopathy Add. Discharge Instructions: 1. Return to ER for any concerns such as fevers or worsening pain. Call Dr. Gavin today to make an appointment for follow-up. Take the pain medication as directed. All discharge instructions reviewed with patient and/or family. Voiced understanding. Scripts Hydrocodone/Acetaminophen (Hydrocodone-Acetamin 5-325 mg) 1 Each Tablet 1 EACH PO Q4H PRN for PAIN-MODERATE (5-7), #14 TAB Prov: INLA SNELL APRN 11/14/20 Meloxicam (Meloxicam) 7.5 Mg Tablet 7.5 MG PO DAILY, #20 TAB Prov: NILA SNELL ESCORT PATIENTS 11/14/20 Copy Copies To 1: SUBHA GAVIN MD, PETER J APRN Nov 14, 2020 12:28
[2020-11-14] MEDS ORDERED: KETOROLAC 30 MG/ML VIAL IM ONE (12:30)
[2020-11-14] MEDS ORDERED: HYDROcodone/APAP 5 MG/325 MG (LORTAB) TAB PO ONE (12:30)
--- NOTE | 2020-11-14 12:43 | NUR ---
Ezio mccormick in ED - 11/14/20 at 1244 by KATARZYNA Called and updated pt's .
--- NOTE | 2020-11-14 13:06 | NUR ---
REPORT GIVEN TO SLOANE
--- NOTE | 2020-11-14 13:10 | NUR ---
Report received by Yolanda MARCIAL
--- NOTE | 2020-11-14 13:26 | Diagnostic Imaging Report ---
PROCEDURE: CT lumbar spine without contrast. TECHNIQUE: Multiple contiguous axial images were obtained through the lumbar spine without the use of intravenous contrast. Sagittal and coronal reformations were then performed. Auto Exposure Controls were utilized during the CT exam to meet ALARA standards for radiation dose reduction. INDICATION: Back pain and right leg pain. COMPARISON: Correlated with CT abdomen and pelvis 10/04/2020 as well as 11/13/2017. FINDINGS: Bony erosions and endplate irregularities at the most notably L2 inferior endplate and to lesser extent L3 superior endplate and L1 inferior endplate are new from 2018 and mildly increased from the more recent comparison of one month ago. There is no adjacent fluid collection and there are only equivocal findings of edema within the adjacent paravertebral retroperitoneal fat. If the findings were secondary to osteomyelitis and intervertebral discitis, a more substantial paraspinal inflammatory reaction would be expected; however, changes of this magnitude over this time course would be unexpected given any other potential etiology. I would recommend correlating pre and postcontrast enhanced lumbar spine MRI as further evaluation. No evidence for abscess. There are secondary degenerative changes to the discs which are narrowed at L1-L2 and L2-L3 and its conceivable that the findings are all on a progressive sterile spondylytic basis. At L2-L3 there is a mild degree of canal stenosis and moderate left and mild right foraminal narrowing. No high-grade canal stenosis. No evidence for fracture. The alignment is normal. IMPRESSION: Findings are indeterminate between progressive degenerative sequelae at the L2-L3 greater than L1-L2 levels versus bony changes owing to infection. Correlated contrast-enhanced lumbar MRI recommended. No findings to suggest an abscess canal and left greater than right foraminal stenosis at L2-L3 noted. Dictated by: Dictated on workstation # [id number]
[2020-11-14] MEDS ORDERED: fentaNYL INJECTION 100 MCG/2 ML AMP IVP ONE (13:30)
[2020-11-14 14:00] LABS: BASOPHILS % (AUTO) 0 % (0-10); EOSINOPHILS % (AUTO) 0 % (0-10); HEMATOCRIT 35 % (40-54); HEMOGLOBIN 11.6 g/dL (13.3-17.7); LYMPHOCYTES # (AUTO) 1.5 10^3/uL (1.0-4.0); LYMPHOCYTES % (AUTO) 17 % (12-44); MEAN CORPUSCULAR HEMOGLOBIN 29 pg (25-34); MEAN CORPUSCULAR HGB CONC 34 g/dL (32-36); MEAN CORPUSCULAR VOLUME 88 fL (80-99); MEAN PLATELET VOLUME 8.9 fL (9.0-12.2); MONOCYTES # (AUTO) 1.2 10^3/uL (0.0-1.0); MONOCYTES % (AUTO) 14 % (0-12); NEUTROPHILS % (AUTO) 68 % (42-75); PLATELET COUNT 342 10^3/uL (130-400); WHITE BLOOD COUNT 8.9 10^3/uL (4.3-11.0)
[2020-11-14 14:13] LABS: CHLORIDE 96 MMOL/L (98-107); POTASSIUM 3.6 MMOL/L (3.6-5.0); SODIUM 133 MMOL/L (135-145)
[2020-11-14 14:14] LABS: CALCIUM 9.2 MG/DL (8.5-10.1); GLUCOSE 109 MG/DL (70-105)
[2020-11-14 14:16] LABS: CARBON DIOXIDE 28 MMOL/L (21-32)
[2020-11-14 14:18] LABS: CREATININE SERUM 1.02 MG/DL (0.60-1.30); GFR ESTIMATED > 60
[2020-11-14 14:19] LABS: BUN/CREATININE RATIO 14
[2020-11-14 14:20] LABS: ERYTHROCYTE SEDIMENTATION RATE 105 MM/HR (0-30)
[2020-11-14] MEDS ORDERED: GADOBUTROL 10 MMOL/10 ML (GADAVIST) VIAL IV ONE (14:30)
--- NOTE | 2020-11-14 15:04 | Diagnostic Imaging Report ---
PROCEDURE: MRI lumbar spine with and without contrast. TECHNIQUE: Multiplanar, multisequence MRI of the lumbar spine was performed with and without contrast. INDICATION: Low back pain. Abnormal CT. COMPARISON: CT lumbar spine without contrast 11/14/2020. FINDINGS: There are 5 lumbar-type vertebral bodies for the purposes of this report. Normal alignment. Vertebral body heights are preserved. Abnormal signal at L2-L3 and the inferior endplate of L1 is most compatible with Modic type I degenerative endplate changes. There is some expected associated enhancement. There is no edema or enhancement within the affected disc spaces. Bone marrow signal is otherwise unremarkable. No suspicious enhancement. No abnormal signal or enhancement in the conus which terminates at L1. Normal morphology of the cauda equina. The visualized abdominal pelvic contents are unremarkable. L1-L2: Normal. L2-L3: Disc osteophyte complex, ligamentous hypertrophy and facet arthropathy result in moderate spinal canal stenosis. Severe left and moderate right neural foraminal narrowing. L3-L4: Annular disc bulge, ligamentous hypertrophy and facet arthropathy result in moderate spinal canal stenosis. Mild to moderate bilateral neural foraminal narrowing. L4-L5: [id number] spinal canal stenosis primarily due to ligamentous hypertrophy and facet arthropathy. Mild bilateral neural foraminal narrowing. L5-S1: Moderate facet arthropathy. No spinal canal, lateral recess or neural foraminal narrowing. IMPRESSION: 1. Edema and enhancement at L2-L3 and the inferior endplate of L1 is a morphology most compatible with Modic type I degenerative endplate changes. No findings suspicious for adjacent abscess formation. An infectious process is considered less likely but could have a similar appearance. Recommend continued follow-up versus transpedicular biopsy if there is a strong clinical suspicion. 2. Spondylotic changes result in moderate spinal canal stenosis at L2-L3 and L3-L4. 3. Scattered neural foraminal narrowing as above. Dictated by: Dictated on workstation # [id number]
[2020-11-14] MEDS ORDERED: MELO7.5T46 PO (15:13)
[2020-11-14] MEDS ORDERED: ACHD5005 PO (15:13)
[2020-11-14 15:31] VITALS: BP 146/72
== END 2020-11-14 15:31 | disposition home or self-care (01) ==
LOC: EDUNIT# 11:59 → ER 12:00
DX: M54.16 Radiculopathy, lumbar region (principal); E66.9 Obesity, unspecified; J44.9 Chronic obstructive pulmonary disease, unspecified; I10 Essential (primary) hypertension; Z68.31 Body mass index [BMI] 31.0-31.9, adult; Z79.52 Long term (current) use of systemic steroids
CPT/HCPCS: 36415; 72131; 72158; 80048; 85025; 85652; 86141

== ENCOUNTER → 2020-11-22 | Outpatient (CLI) | payer MEDICARE ==
[~2020-11-22] MED LIST changes: +MELO7.5T46 PO
== END ==
LOC: LABNPT 05:34
PROVIDERS: ATTEND Internal Medicine Gastroenterology
DX: Z20.822 Contact with and (suspected) exposure to COVID-19 (principal)
CPT/HCPCS: 87635

== ENCOUNTER 2022-03-27 05:42 | Outpatient (CLI) | payer MEDICARE ==
[~2022-03-27] VITALS: Ht 177.8 cm; Wt 102.5 kg
[~2022-03-27 05:42] MED LIST changes: -CIPR500T4 PO; +CIPR500T5 PO; +DOXY-311 PO; -DOXY100C42 PO
[2022-03-28] MEDS ORDERED: HYDR-700 PO (10:22)
[2022-03-28] MEDS ORDERED: LOSA50TA63 PO (10:22)
[2022-03-28] MEDS ORDERED: ATOR40TA70 PO (10:22)
== END 2022-03-28 10:26 | disposition home or self-care (01) ==
LOC: PREOP 05:42
PROVIDERS: ATTEND Surgery

== ENCOUNTER 2022-04-09 06:47 | Day surgery (SDC) | payer MEDICARE, OTHER ==
[~2022-04-09] VITALS: Ht 177.8 cm; Wt 102.5 kg
[~2022-04-09 06:47] MED LIST changes: +ATOR40TA70 PO; +HYDR-700 PO; +LOSA50TA63 PO
[2022-04-09] MEDS ORDERED: LACTATED RINGERS 1,000 ML IV STA (06:59)
[2022-04-09] MEDS ORDERED: TRAM50TA3 PO (07:07)
[2022-04-09] MEDS ORDERED: ZOLP10TA PO (07:07)
[2022-04-09] MEDS ORDERED: AMLO-251 PO (07:07)
[2022-04-09] MEDS ORDERED: ROSU20TA32 PO (07:07)
[2022-04-09] MEDS ORDERED: BACL10TA PO (07:07)
[2022-04-09 07:12] VITALS: BP 149/76
[2022-04-09] MEDS ORDERED: PROPOFOL INJECTION 50 ML IV ONE ×2 (09:01→09:23)
--- NOTE | 2022-04-09 09:01 | Progress Note-Pre Operative ---
Pre-Operative Progress Note H&P Reviewed The H&P was reviewed, patient examined and no changes noted. Date Seen by Provider: Apr 09, 2022 Time Seen by Provider: 09:01 Date H&P Reviewed: Apr 09, 2022 Time H&P Reviewed: 09:01 Pre-Operative Diagnosis: blood in stool KARTIK MARMOLEJO DO Apr 09, 2022 09:01
[2022-04-09] MEDS ORDERED: MIDAZOLAM 2 MG/2 ML (VERSED) VIAL ONE (09:32)
[2022-04-09 09:45] VITALS: BP 94/51
--- NOTE | 2022-04-09 09:45 | Progress Note-Post Operative ---
Post-Operative Progess Note Surgeon (s)/Web Designer (s) Surgeon KARTIK MARMOLEJO DO Web Designer: na Pre-Operative Diagnosis blood in stool Post-Operative Diagnosis diverticulosis, cecal polyp Procedure & Operative Findings Date of Procedure 04/09/22 Procedure Performed/Findings colonoscopy c snare polypectomy Anesthesia Type per computer help desk representative Estimated Blood Loss Estimated blood loss (mL): none Specimens/Packing Specimens Removed cecal polyp KARTIK MARMOLEJO DO Apr 09, 2022 09:45
--- NOTE | 2022-04-09 09:46 | Discharge Inst-Simple/Standard ---
Discharge Inst-Standard Patient Instructions/Follow Up Plan of Care/Instructions/FU: 2 weeks Aydee Activity as Tolerated: Yes Discharge Diet: Regular Diet (high fiber) KARTIK MARMOLEJO DO Apr 09, 2022 09:46
--- NOTE | 2022-04-09 09:48 | Anesthesia-General Post-Op ---
MAC Patient Condition Mental Status/LOC: Same as Preop Cardiovascular: Satisfactory Nausea/Vomiting: Absent Respiratory: Satisfactory Pain: Controlled Complications: Absent Post Op Complications Complications None Follow Up Care/Instructions Patient Instructions None needed. Anesthesiology Discharge Order Discharge Order Patient is doing well, no complaints, stable vital signs, no apparent adverse anesthesia problems. No complications reported per nursing. EMELY PASCAL CRNA Apr 09, 2022 09:48
[2022-04-09 09:50] VITALS: BP 94/51
[2022-04-09 10:08] VITALS: BP 113/66
--- NOTE | 2022-04-09 16:33 | OPERATIVE REPORT ---
DATE OF SERVICE: 04/09/2022 PREOPERATIVE DIAGNOSIS: Blood in stool. POSTOPERATIVE DIAGNOSES: Diverticulosis, cecal polyp, and healed anal fissure. PROCEDURES PERFORMED: Colonoscopy with snare polypectomy. SURGEON: Kartik Bajwa DO ANESTHESIA: Per DOUBLE BACK OPERATOR. ESTIMATED BLOOD LOSS: None. COMPLICATIONS: None. INDICATIONS FOR PROCEDURE: The patient is a 66-year-old male with blood in stool. He understands risks and benefits of procedure and wishes to proceed. Consent was signed in the chart. DESCRIPTION OF PROCEDURE: The patient was taken to the endoscopy suite and placed in the left lateral recumbent position. Timeout was performed. Digital rectal exam was performed noting a healed anal fissure. No palpable polyps, masses or ulcerations. Scope was inserted in the rectum and advanced all the way to the cecum with minimal difficulty. Prep was adequate with irrigation and suction. Still some particulate throughout the colon. The cecum had a small polyp present, which snare polypectomy was performed. Scope was then continuously retracted back. No polyps, masses or ulcerations within the ascending, transverse, descending and sigmoid colon. Throughout the entire colon, a little bit of diverticulosis. Once in the rectum, scope was retroflexed noting no other pathology. Scope was returned to its normal position, slowly withdrawn until completely removed. The patient tolerated the procedure well without any complications and taken to the recovery room in stable condition. RECOMMENDATIONS: The patient will need repeat colonoscopy in five years. Any issues before that be seen at that time for a repeat scope. The patient will follow up on pathology. We recommend a high fiber diet due to diverticulosis. The patient with healed fissure, which might have been the source of his bleeding. If any return of symptoms be reevaluated at that time. Job ID: [id number] DocumentID: [id number] Dictated Date: 04/09/2022 09:50:32 Big Data Engineer Date: 04/09/2022 16:32:19 Dictated By: KARTIK BAJWA DO
== END 2022-04-09 10:15 | disposition home or self-care (01) ==
LOC: ENDO 06:47
PROVIDERS: ATTEND Surgery
DX: D12.0 Benign neoplasm of cecum (principal); K57.31 Diverticulosis of large intestine without perforation or abscess with bleeding; E66.9 Obesity, unspecified; Z68.32 Body mass index [BMI] 32.0-32.9, adult
CPT/HCPCS: 88305